=== PATIENT | male | born 1940 | race Caucasian/White ===

== ENCOUNTER 2016-10-26 23:31 | Observation (INO) | payer MEDICARE, OTHER ==
[~2016-10-26] VITALS: Ht 165.1 cm; Wt 81.0 kg
[~2016-10-26 23:31] MED LIST: ASPI1TAB7 PO; BACT800T5 PO; CARB25TA PO; CLON2TAB PO; HYDR-3533 PO; LEVO.05 PO; TAB-TAB PO; TAMS0.4C67 PO; TRAM50TA PO; WAL-10TA2 PO; ZOFR4TAB3 SL
[2016-10-26 23:39] VITALS: BP 170/80; PULSE 101; RESP 18; TEMP 99.2; O2SAT 94
[2016-10-27] VITALS (11 sets, daily range): BP systolic 115–170; BP diastolic 59–98; PULSE 62–101; RESP 16–18; TEMP 97.9–99.2; O2SAT 94–98
[2016-10-27] MEDS ORDERED: CLON2TAB PO (00:19)
[2016-10-27] MEDS ORDERED: CARB25TA9 PO (00:19)
[2016-10-27] MEDS ORDERED: TRAM50TA PO (00:19)
[2016-10-27] MEDS ORDERED: LEVO75TA3 PO (00:19)
[2016-10-27] MEDS ORDERED: ASPI81CH CHEW (00:19)
[2016-10-27] MEDS ORDERED: SODIUM CHLOR 0.9% 1000 ML INJ 1,000 ML IV SCH ×3 (00:29→02:07)
[2016-10-27] MEDS ORDERED: ONDANSETRON HCL 4 MG/2 ML VIAL IVP ONE (00:30)
[2016-10-27] MEDS ORDERED: SODIUM CHLORIDE 0.9% FLUSH 5 ML FLUSH IVF PRN (00:30)
--- NOTE | 2016-10-27 00:45 | PD ---
HPI Chief Complaint: GI Complaint Time Seen by Provider: 00:25 Travel History International Travel<30 days: No Contact w/Intl Traveler<30days: No Traveled to known affect area: No History of Present Illness HPI The patient is a 76-year-old male that states he started having mostly left lower quadrant pain along with vomiting beginning at 1800 today. The patient has an enlarged prostate and has trouble urinating. He denies any fever or diarrhea. PFSH Past Medical History Arthritis: Yes (LOWER BACK) Anxiety: Yes Depression: No Cancer: Yes (PROSTATE CANCER 2001) Cardiovascular Problems: Yes Chemotherapy: No Diabetes: No Diminished Hearing: No Endocrine: Yes Gastrointestinal Disorders: Yes GERD: Yes Genitourinary: Yes Hypertension: Yes Immune Disorder: No Musculoskeletal: Yes (POST POLIO SYNDROME) Neurologic: Yes Parkinson's Disease: Yes Psychiatric: Yes Reproductive: No Respiratory: No Immunizations Current: Yes Radiation Therapy: Yes (IMPLANTED SEEDS, EXTERNAL BEAM RADIATION) Thyroid Disease: Yes (ON SYNTHROID) Tetanus Vaccination: Unknown Influenza Vaccination: Yes Past Surgical History Genitourinary Surgery: Yes (PROSTATE REMOVAL) Tonsillectomy: Yes Other Surgery: Yes (3 RECTAL SURGERIES) Social History Alcohol Use: Yes (SOCIAL) Tobacco Use: No (QUIT 48 YEARS AGO) Substance Use: No Allergies-Medications (Allergen,Severity, Reaction): Coded Allergies: Flexeril (Verified Allergy, Severe, stiff, 10/27/16) Reported Meds & Prescriptions Reported Meds & Active Scripts Active Reported Tramadol (Tramadol HCl) 50 Mg Tab 50 Mg PO Q4H PRN Levothyroxine (Levothyroxine Sodium) 75 Mcg Tab 75 Mcg PO DAILY Clonazepam 2 Mg Tab 4 Mg PO HS Carbidopa-Levodopa 25-100 Mg Tab 1 Tab PO TID Aspirin 81 Mg Chew 81 Mg CHEW DAILY Review of Systems Except as stated in HPI: all other systems reviewed are Neg Physical Exam Narrative GENERAL: The patient is alert, oriented 3 and slight apparent distress with his abdominal discomfort. His vital signs show blood pressure 170/80 with a heart rate of 101 but are otherwise normal. The patient appears moderately dehydrated. SKIN: Warm and dry. HEAD: Atraumatic. Normocephalic. EYES: Pupils equal and round. No scleral icterus. No injection or drainage. ENT: No nasal bleeding or discharge. Mucous membranes pink and moist. NECK: Trachea midline. No JVD. CARDIOVASCULAR: Regular rate and rhythm. No murmur appreciated. RESPIRATORY: No accessory muscle use. Clear to auscultation. Breath sounds equal bilaterally. GASTROINTESTINAL: Abdomen soft, with tenderness to direct palpation in the left lower and mid quadrants, nondistended. Hepatic and splenic margins not palpable. No guarding or rebound is present. MUSCULOSKELETAL: No obvious deformities. No clubbing. No cyanosis. No edema. NEUROLOGICAL: Awake and alert. No obvious cranial nerve deficits. Motor grossly within normal limits. Normal speech. PSYCHIATRIC: Appropriate mood and affect; insight and judgment normal. Data Data Last Documented VS Vital Signs Date Time Temp Pulse Resp B/P Pulse Ox O2 Delivery O2 Flow Rate FiO2 10/27/16 01:21 95 18 143/72 94 Room Air 10/27/16 00:04 99.2 Orders Complete Blood Count With Diff (10/27/16 00:29) Comprehensive Metabolic Panel (10/27/16 00:29) Lipase (10/27/16 00:29) Urinalysis - C+S If Indicated (10/27/16 00:29) Ct Abd/Pel W/O Iv Contrast (10/27/16 00:29) Iv Access Insert/Monitor (10/27/16 00:29) Ecg Monitoring (10/27/16 00:29) Oximetry (10/27/16 00:29) Ondansetron Inj (Zofran Inj) (10/27/16 00:30) Sodium Chlor 0.9% 1000 Ml Inj (Ns 1000 M (10/27/16 00:29) Sodium Chloride 0.9% Flush (Ns Flush) (10/27/16 00:30) Sodium Chlor 0.9% 1000 Ml Inj (Ns 1000 M (10/27/16 01:45) Place In Observation (10/27/16 ) Vital Signs (Adult) Q4H (10/27/16 02:07) Activity Oob With Assistance (10/27/16 02:07) Intake + Output RANJAN.QSHIFT (10/27/16 02:07) Diet Regular Basic (10/27/16 Breakfast) Sodium Chlor 0.9% 1000 Ml Inj (Ns 1000 M (10/27/16 02:07) Sodium Chloride 0.9% Flush (Ns Flush) (10/27/16 02:15) Sodium Chloride 0.9% Flush (Ns Flush) (10/27/16 09:00) Ondansetron Inj (Zofran Inj) (10/27/16 02:15) Bisacodyl Supp (Dulcolax Supp) (10/27/16 02:15) Comprehensive Metabolic Panel (10/28/16 06:00) Complete Blood Count With Diff (10/28/16 06:00) Lipase (10/28/16 06:00) Scd Bilateral/Knee High RANJAN.BID (10/27/16 02:07) Swapnil Bilateral/Knee High RANJAN.QSHIFT (10/27/16 02:07) Acetaminophen (Tylenol) (10/27/16 02:15) Acetamin-Hydrocod 325-5 Mg ([place] 5-325 (10/27/16 02:15) Morphine Inj (Morphine Inj) (10/27/16 02:15) Pantoprazole Inj (Protonix Inj) (10/27/16 02:15) Aspirin Chew (Aspirin Chew) (10/27/16 09:00) Carbidopa-Levodopa 25-100 Mg (Sinemet 25 (10/27/16 09:00) Clonazepam (Klonopin) (10/27/16 21:00) Levothyroxine (Synthroid) (10/27/16 09:00) Labs Laboratory Tests Test 10/27/16 10/27/16 01:00 01:10 Urine Collection Type CLEAN CATCH Urine Color YELLOW Urine Turbidity CLEAR Urine pH 6.0 Urine Specific [place] 1.028 Urine Protein TRACE mg/dL Urine Glucose (UA) NEG mg/dL Urine Ketones 40 mg/dL Urine Occult Blood NEG Urine Nitrite NEG Urine Bilirubin NEG Urine Leukocyte Esterase NEG Urine WBC 0-2 /hpf Urine Squamous Epithelial 0-5 /hpf Cells Urine Amorphous Sediment FEW Urine Mucus FEW /lpf Microscopic Urinalysis Comment CULT NOT INDICATED White Blood Count 13.7 TH/MM3 Red Blood Count 5.13 MIL/MM3 Hemoglobin 18.2 GM/DL Hematocrit 53.5 % Mean Corpuscular Volume 104.3 FL Mean Corpuscular Hemoglobin 35.5 PG Mean Corpuscular Hemoglobin 34.0 % Concent Red Cell Distribution Width 13.0 % Platelet Count 145 TH/MM3 Mean Platelet Volume 9.4 FL Neutrophils (%) (Auto) 88.6 % Lymphocytes (%) (Auto) 2.9 % Monocytes (%) (Auto) 6.0 % Eosinophils (%) (Auto) 0.1 % Basophils (%) (Auto) 2.4 % Neutrophils # (Auto) 12.2 TH/MM3 Lymphocytes # (Auto) 0.4 TH/MM3 Monocytes # (Auto) 0.8 TH/MM3 Eosinophils # (Auto) 0.0 TH/MM3 Basophils # (Auto) 0.3 TH/MM3 CBC Comment DIFF FINAL Differential Comment Sodium Level 141 MEQ/L Potassium Level 4.4 MEQ/L Chloride Level 105 MEQ/L Carbon Dioxide Level 25.0 MEQ/L Anion Gap 11 MEQ/L Blood Urea Nitrogen 18 MG/DL Creatinine 1.60 MG/DL Estimat Glomerular Filtration 42 ML/MIN Rate Random Glucose 214 MG/DL Calcium Level 9.0 MG/DL Total Bilirubin 1.0 MG/DL Aspartate Amino Transf 98 U/L (AST/SGOT) Alanine Aminotransferase 85 U/L (ALT/SGPT) Alkaline Phosphatase 84 U/L Total Protein 8.1 GM/DL Albumin 4.4 GM/DL Lipase 633 U/L [facility] Medical Decision Making Medical Screen Exam Complete: Yes Emergency Medical Condition: Yes Medical Record Reviewed: Yes Interpretation(s) The complete metabolic profile shows a creatinine of 1.6, glucose 214, AST of 98 , ALT of 85 but is otherwise unremarkable. The lipase is 633. The urinalysis shows 40 ketones, specific gravity 1.0-8 and is otherwise unremarkable and culture is not indicated. The CBC shows a white count of 13,700, hemoglobin of 18.2, hematocrit of 53.5 with a platelet count of 145,000 but is otherwise unremarkable. Differential Diagnosis Diverticulitis, urinary stone, colitis, acute appendicitis, dehydration, electrolyte disorder, pyelonephritis, cystitis, pancreatitis, ischemic bowel Narrative Course The patient was dehydrated. He has hemoconcentration as demonstrated by his hemoglobin and hematocrit elevation. He also has a high urine specific gravity and ketones in his urine. He has an elevated lipase but he is not particularly tender over the pancreas. The patient will be brought in under [address] of the abdomen/pelvis does not demonstrate a reason for his abdominal pain, nausea and vomiting. This may be a gastroenteritis, ischemic bowel is possible but his tenderness appears to be going away at this time. Physician Communication Physician Communication I discussed the patient with Dr. Heredia, the patient will be 23 hour observation to her. Diagnosis Primary Impression: Abdominal pain Additional Impressions: Abdominal pain of unknown etiology Pancreatitis Moderate dehydration Admitting Information Admitting Physician Requests: Observation Eddie Taylor MD Oct 27, 2016 00:45
--- NOTE | 2016-10-27 01:17 | RADHPO ---
EXAM DATE/TIME: 10/27/2016 00:53 [facility] COMPARISON: CT ABDOMEN & PELVIS W CONTRAST, July 03, 2015, 3:34. INDICATIONS : Vomiting with bilateral flank pain. ORAL CONTRAST: No oral contrast ingested. RADIATION DOSE: 18.56 CTDIvol (mGy) MEDICAL HISTORY : Hypertension. Gastroesophageal reflux disease. Carcinoma, prostate.Parkinsons. SURGICAL HISTORY : None. ENCOUNTER: Initial ACUITY: 1 day PAIN SCALE: 6/10 LOCATION: Bilateral flank TECHNIQUE: Volumetric scanning of the abdomen and pelvis was performed. Using automated exposure control and ad justment of the mA and/or kV according to patient size, radiation dose was kept as low as reasonably achievable to obtain optimal diagnostic quality images. The lack of IV contrast limits the diagnosis for certain organ pathology. FINDINGS: LOWER LUNGS: The visualized lower lungs are clear. LIVER: Homogeneous density without lesion. There is no dilation of the biliary tree. No calcified gallston es. Fatty infiltration of liver. SPLEEN: Normal size without lesion. PANCREAS: Within normal limits. KIDNEYS: Normal in size and shape. There is no mass, stone, or hydronephrosis. The ureters are nondilated. Th ere is stable cortical scarring of the right kidney. ADRENAL GLANDS: Within normal limits. VASCULAR: There is no aortic aneurysm. Atherosclerotic changes. BOWEL/MESENTERY: The stomach, small bowel, and colon demonstrate no acute abnormality. There is no free intraperitone al air or fluid. A few scattered diverticula of the sigmoid colon. No inflammatory changes. ABDOMINAL WALL: Within normal limits. RETROPERITONEUM: There is no lymphadenopathy. BLADDER: No wall thickening or mass. REPRODUCTIVE: Prostate seeds are in place. INGUINAL: There is no lymphadenopathy or hernia. MUSCULOSKELETAL: Within normal limits for patient age. Primary bony degenerative changes. No significant changes compared to the prior study. CONCLUSION: 1. No calcified renal stones or hydronephrosis. 2. Otherwise, stable exam compared to the prior study from 2014 Lamberto Andrade MD on October 27, 2016 at 1:11 Board Certified Radiologist. This report was verified electronically.
[2016-10-27 01:22] LABS: AUTOMATED NEUTROPHIL # 12.2 TH/MM3 (1.8-7.7); BASOPHIL # 0.3 TH/MM3 (0-0.2); BASOPHIL % 2.4 % (0.0-2.0); EOSINOPHIL % 0.1 % (0.0-4.0); HEMATOCRIT 53.5 % (39.0-51.0); LYMPH % 2.9 % (9.0-44.0); LYMPHOCYTE # 0.4 TH/MM3 (1.0-4.8); MEAN CELL VOLUME 104.3 FL (80.0-100.0); MEAN CORPUSCULAR HEMOGLOBIN 35.5 PG (27.0-34.0); NEUT % 88.6 % (16.0-70.0); PLATELET COUNT 145 TH/MM3 (150-450); RED BLOOD COUNT 5.13 MIL/MM3 (4.50-5.90); WHITE BLOOD COUNT 13.7 TH/MM3 (4.0-11.0)
[2016-10-27 01:22] LABS: BLOOD, URINE NEG (NEG); GLUCOSE,URINE NEG (NEG); KETONE, URINE 40 mg/dL (NEG); NITRITE,URINE NEG (NEG)
[2016-10-27 01:23] LABS: HEMO FLAGS DIFF FINAL
[2016-10-27 01:35] LABS: CHLORIDE 105 MEQ/L (98-107); POTASSIUM 4.4 MEQ/L (3.5-5.1); SODIUM (NA) 141 MEQ/L (136-145)
[2016-10-27 01:36] LABS: METHOD OF COLLECTION CLEAN CATCH; URINE COLOR YELLOW (YELLW/STRAW)
[2016-10-27 01:37] LABS: MUCUS URINE FEW /lpf (OCC)
[2016-10-27 01:38] LABS: SQUAMOUS EPITHELIAL CELL URINE 0-5 /hpf (0-5)
[2016-10-27 01:39] LABS: ANION GAP 11 MEQ/L (5-15); BLOOD UREA NITROGEN 18 MG/DL (7-18)
[2016-10-27 01:39] LABS: WBC, URINE 0-2 /hpf (0-5)
[2016-10-27 01:40] LABS: COMMENT (UR) CULT NOT INDICATED; CULTURE IF INDICATED CULT NOT INDICATED
[2016-10-27 01:41] LABS: ALT (GPT) 85 U/L (12-78)
[2016-10-27 01:42] LABS: AST (GOT) 98 U/L (15-37); GLOMERULAR FILTRATION RATE 42 ML/MIN (>89)
[2016-10-27 01:44] LABS: ALKALINE PHOSPHATASE 84 U/L (45-117)
[2016-10-27] MEDS ORDERED: SODIUM CHLORIDE 0.9% FLUSH 5 ML FLUSH FLUSH PRN (02:15)
[2016-10-27] MEDS ORDERED: BISACODYL 10 MG SUPP PR PRN (02:15)
[2016-10-27] MEDS ORDERED: ONDANSETRON HCL 4 MG/2 ML VIAL IVP PRN (02:15)
[2016-10-27] MEDS ORDERED: PANTOPRAZOLE SODIUM 40 MG VIAL IV PUSH ONE (02:15)
[2016-10-27] MEDS ORDERED: ACETAMINOPHEN 325 MG TAB PO PRN (02:15)
[2016-10-27] MEDS ORDERED: ACETAMINOPHEN/HYDROcodone 325 MG/5 MG TAB PO PRN (02:15)
[2016-10-27] MEDS ORDERED: MORPHINE SULFATE 4 MG/ML INJ IV PRN (02:15)
[2016-10-27] MEDS ORDERED: LEVOTHYROXINE SODIUM 75 MCG TAB PO SCH (06:00)
[2016-10-27 06:58] LABS: CHLORIDE 112 MEQ/L (98-107); POTASSIUM 4.2 MEQ/L (3.5-5.1); SODIUM (NA) 145 MEQ/L (136-145)
[2016-10-27 07:00] LABS: AUTOMATED NEUTROPHIL # 8.5 TH/MM3 (1.8-7.7); BASOPHIL % 0.1 % (0.0-2.0); EOSINOPHIL % 0.2 % (0.0-4.0); HEMATOCRIT 43.2 % (39.0-51.0); HEMO FLAGS DIFF FINAL; LYMPH % 6.8 % (9.0-44.0); LYMPHOCYTE # 0.7 TH/MM3 (1.0-4.8); MEAN CELL VOLUME 103.3 FL (80.0-100.0); MEAN CORPUSCULAR HEMOGLOBIN 35.8 PG (27.0-34.0); MEAN CORPUSCULAR HGB CONC 34.6 % (32.0-36.0); MONO % 8.3 % (0.0-8.0); NEUT % 84.6 % (16.0-70.0); PLATELET COUNT 130 TH/MM3 (150-450); RED BLOOD COUNT 4.18 MIL/MM3 (4.50-5.90); RED CELL DISTRIBUTION WIDTH 12.7 % (11.6-17.2)
[2016-10-27 07:08] LABS: ALKALINE PHOSPHATASE 59 U/L (45-117); ALT (GPT) 85 U/L (12-78); ANION GAP 8 MEQ/L (5-15); AST (GOT) 59 U/L (15-37); BLOOD UREA NITROGEN 16 MG/DL (7-18); GLOMERULAR FILTRATION RATE 54 ML/MIN (>89); TOTAL BILIRUBIN ADULT 0.5 MG/DL (0.2-1.0)
--- NOTE | 2016-10-27 08:36 | HHI.HP ---
[facility] Campbell Baez MD Admission Diagnosis abdominal pain, dehydration, pancreatitis Diagnoses: (1) Abdominal pain Diagnosis: Principal (2) Nausea & vomiting Diagnosis: Principal (3) Elevated lipase Diagnosis: Principal (4) Acute renal failure superimposed on stage 3 chronic kidney disease Diagnosis: Principal Chief Complaint: Nausea and vomiting Travel History International Travel<30 Days: No Contact w/Intl Traveler <30 Da: No Traveled to Known Affected Are: No History of Present Illness 76 year-old male with known history of Parkinson's, chronic kidney disease stage III, hypothyroidism, history of prostate cancer who presented to hospital because of nausea vomiting. Patient states that he ate dinner last night which consisted of pulled chicken and 5 garibay salad. Subsequently 1 hour after that he started developing lower abdominal pain, nausea vomiting. Patient states that he vomited 7 times and was unable to keep anything down so he came to the hospital for evaluation. Patient had workup done emergency department and was found to have an elevated lipase level, acute renal failure superimposed on chronic kidney disease. It was then recommended by ER physician that the patient be admitted for further evaluation management. Upon evaluating the patient this morning patient is feeling much better. He is no longer experiencing any abdominal pain. Patient has a breakfast without any recurrent nausea and vomiting. Patient denies any hematemesis, diarrhea, constipation. Discussed with patient his clinical condition, he is asymptomatic at this time. Tolerating food. Notified him that we can plan to discharge him home. Patient is in agreement with the plan at this time. Review of Systems Constitutional: DENIES: Diaphoretic episodes, Fatigue, Fever, Weight gain, Weight loss, Chills, Dizziness, Change in appetite, Night Sweats Eyes: DENIES: Blurred vision, Diplopia, Eye inflammation, Eye pain, Vision loss , Double Vision Ears, nose, mouth, throat: DENIES: Vertigo, Nasal discharge, Throat pain, Ear Pain, Running Nose, Sinus Pain Respiratory: DENIES: Apneas, Cough, Snoring, Wheezing, Hemoptysis, Sputum production, Shortness of breath Cardiovascular: DENIES: Chest pain, Palpitations, Syncope, Dyspnea on Exertion , Lower Extremity Edema, Orthopnea Gastrointestinal: COMPLAINS OF: Abdominal pain, Nausea, Vomiting, DENIES: Black stools, Bloody stools, Constipation, Diarrhea, Difficulty Swallowing, Anorexia Neurologic: DENIES: Abnormal gait, Headache, Localized weakness, Paresthesias, Seizures, Speech Problems, Tremor, Poor Balance Past Family Social History Past Medical History Parkinson's History of prostate cancer Hypothyroidism History of polio Gastroesophageal reflux Past Surgical History Tonsillectomy 4 rectal surgeries related to radiation complications Reported Medications Reported Meds & Active Scripts Active Reported Tramadol (Tramadol HCl) 50 Mg Tab 50 Mg PO Q4H PRN Levothyroxine (Levothyroxine Sodium) 75 Mcg Tab 75 Mcg PO DAILY Clonazepam 2 Mg Tab 4 Mg PO HS Carbidopa-Levodopa 25-100 Mg Tab 1 Tab PO TID Aspirin 81 Mg Chew 81 Mg CHEW DAILY Allergies: Coded Allergies: Flexeril (Verified Allergy, Severe, stiff, 10/27/16) Family History Reviewed and patient states that both mother and father had alcoholism. Mother had history of throat cancer status post radiation secondary to smoking Social History Patient quit smoking in 1969, prior to that he smoked up to a pack a cigarettes a day since he was 20 years old. Patient states that he does drink alcohol occasionally. Denies any illicit drugs Physical Exam Vital Signs Vital Signs Date Time Temp Pulse Resp B/P Pulse Ox O2 Delivery O2 Flow Rate FiO2 10/27/16 07:55 74 16 115/60 98 Room Air 10/27/16 06:10 89 16 132/73 98 Room Air 10/27/16 05:20 83 16 138/74 97 Room Air 10/27/16 04:36 18 10/27/16 04:36 83 18 136/66 95 Room Air 10/27/16 03:18 97.9 90 18 161/98 96 Room Air 10/27/16 02:18 18 10/27/16 02:18 92 18 160/70 95 Room Air 10/27/16 01:21 95 18 143/72 94 Room Air 10/27/16 00:34 18 95 Room Air 10/27/16 00:08 18 10/27/16 00:04 99.2 101 18 170/80 94 10/26/16 23:39 99.2 101 18 170/80 94 Physical Exam GENERAL: Well-developed, well-nourished, in no acute distress. alert and orientated HEENT: Head is normocephalic without any lesions or masses noted. Facial features are symmetric. Eyes: Pupils equal round reactive to light. Extraocular muscles are intact. Conjunctivae were clear. Oropharyngeal: Pharynx without any erythema edema. Tongue is midline without deviation. Buccal mucosa is moist without any masses or lesions NECK: Supple without any masses. Trachea midline no deviation. No JVD, no bruits are appreciated CARDIAC: Regular rhythm, regular rate. S1/S2 are heard. No murmurs gallops or rubs. LUNGS: Clear to auscultation bilaterally. No wheeze, rhonchi or rales. No use of accessory muscles on inspiration or expiration. ABDOMEN: Soft, nontender. Nondistended. Bowel sounds heard in all 4 quadrants. No organomegaly or masses. Negative rebound, negative guarding EXTREMITIES: No edema, pulses are equal bilaterally. No cyanosis or clubbing NEUROLOGY: Mood and affect appear appropriate. Cranial nerves II through XII grossly intact. Muscle strength 5/5 in upper and lower extremities bilaterally. Deep tendon reflexes are 2+ in upper and lower extremities bilaterally. Laboratory Laboratory Tests Test 10/27/16 10/27/16 10/27/16 01:00 01:10 06:05 Urine Collection Type CLEAN CATCH Urine Color YELLOW Urine Turbidity CLEAR Urine pH 6.0 Urine Specific [place] 1.028 Urine Protein TRACE Urine Glucose (UA) NEG Urine Ketones 40 Urine Occult Blood NEG Urine Nitrite NEG Urine Bilirubin NEG Urine Leukocyte Esterase NEG Urine WBC 0-2 Urine Squamous Epithelial 0-5 Cells Urine Amorphous Sediment FEW Urine Mucus FEW Microscopic Urinalysis Comment CULT NOT INDICATED White Blood Count 13.7 10.0 Red Blood Count 5.13 4.18 Hemoglobin 18.2 14.9 Hematocrit 53.5 43.2 Mean Corpuscular Volume 104.3 103.3 Mean Corpuscular Hemoglobin 35.5 35.8 Mean Corpuscular Hemoglobin 34.0 34.6 Concent Red Cell Distribution Width 13.0 12.7 Platelet Count 145 130 Mean Platelet Volume 9.4 9.7 Neutrophils (%) (Auto) 88.6 84.6 Lymphocytes (%) (Auto) 2.9 6.8 Monocytes (%) (Auto) 6.0 8.3 Eosinophils (%) (Auto) 0.1 0.2 Basophils (%) (Auto) 2.4 0.1 Neutrophils # (Auto) 12.2 8.5 Lymphocytes # (Auto) 0.4 0.7 Monocytes # (Auto) 0.8 0.8 Eosinophils # (Auto) 0.0 0.0 Basophils # (Auto) 0.3 0.0 CBC Comment DIFF FINAL DIFF FINAL Differential Comment Sodium Level 141 145 Potassium Level 4.4 4.2 Chloride Level 105 112 Carbon Dioxide Level 25.0 25.0 Anion Gap 11 8 Blood Urea Nitrogen 18 16 Creatinine 1.60 1.30 Estimat Glomerular Filtration 42 54 Rate Random Glucose 214 172 Calcium Level 9.0 7.7 Total Bilirubin 1.0 0.5 Aspartate Amino Transf 98 59 (AST/SGOT) Alanine Aminotransferase 85 85 (ALT/SGPT) Alkaline Phosphatase 84 59 Total Protein 8.1 6.2 Albumin 4.4 3.3 Lipase 633 269 Result Diagram: 10/27/1660410/27/16604 Imaging Last Impressions Abdomen/Pelvis CT 10/27/16 0029 Signed Impressions: Service Date/Time: Thursday, October 27, 2016 00:53 - CONCLUSION: 1. No calcified renal stones or hydronephrosis. 2. Otherwise, stable exam compared to the prior study from 2015 Lamberto Andrade MD Assessment and Plan Assessment and Plan Nausea vomiting with elevated lipase, resolved CT scan does not indicate any acute abnormality Lipase level has returned to normal Patient is tolerating breakfast without any recurrent nausea vomiting Acute renal failure superimposed on chronic kidney disease stage III, improved Continue IV hydration Continue monitor renal functions Hyperglycemia Check hemoglobin A1c Patient will need outpatient follow-up with primary medical doctor Hypothyroidism Continue home medications Parkinson's Continue home medications DVT prevention Sequential compression devices Written by Rk Taylor PA-C, acting as scribe for Dr. Singer on 10/27/16 at 1035. The documentation accurately reflects the work and decisions performed face-to- face by Dr. Singer on 10/27/16 at 1035. Discharge disposition Discharge home in stable condition Activity: Ad reyna. Diet: Healthy heart diet Medications per medication reconciliation Follow-up with primary medical doctor in one week Problem Qualifiers (1) Abdominal pain: Qualified Code: R10.30 - Lower abdominal pain (2) Nausea & vomiting: Qualified Code: R11.2 - Non-intractable vomiting with nausea, unspecified vomiting type Rk Taylor Oct 27, 2016 08:36
--- NOTE | 2016-10-27 08:37 | HHI.DCPOC ---
Discharge Care Plan Diagnosis: (1) Nausea & vomiting (2) Elevated lipase (3) Acute renal failure superimposed on stage 3 chronic kidney disease Goals to Promote Your Health * To prevent worsening of your condition and complications * To maintain your health at the optimal level Directions to Meet Your Goals Take your medications as prescribed Follow your dietary instruction Follow activity as directed Keep your appointments as scheduled Take your immunizations and boosters as scheduled If your symptoms worsen call your PCP, if no PCP go to Urgent Care Center or Emergency Room Smoking is Dangerous to Your Health. Avoid second hand smoke Call the 24-hour hour crisis hotline for domestic abuse at Rk Taylor Oct 27, 2016 08:37
[2016-10-27] MEDS ORDERED: CARBIDOPA/LEVODOPA 25 MG/100 MG TAB PO SCH (09:00)
[2016-10-27] MEDS ORDERED: ASPIRIN 81 MG CHEW TAB CHEW SCH (09:00)
[2016-10-27] MEDS ORDERED: SODIUM CHLORIDE 0.9% FLUSH 5 ML FLUSH FLUSH SCH (09:00)
[2016-10-27 16:30] LABS: HEMOGLOBIN A1a 1.1 %; HEMOGLOBIN A1b 1.6 %; HEMOGLOBIN Ao 84.7 %; HEMOGLOBIN LA1C 2.4 %; HEMOGLOBIN P3 3.7 %
[2016-10-27] MEDS ORDERED: clonazePAM 1 MG TAB PO SCH (21:00)
== END 2016-10-27 12:13 | disposition home or self-care (01) ==
LOC: PHED 23:31 → PHEDA 10-27 02:20 → PHEDH 10-27 06:19
PROVIDERS: ADMIT Family Medicine; ATTEND Family Medicine
DX: R11.2 Nausea with vomiting, unspecified (principal); N17.8 Other acute kidney failure; N18.3 Chronic kidney disease, stage 3 (moderate); K85.90 Acute pancreatitis without necrosis or infection, unspecified; E86.0 Dehydration; G20 Parkinson's disease; E03.9 Hypothyroidism, unspecified; R73.9 Hyperglycemia, unspecified; Z85.46 Personal history of malignant neoplasm of prostate; Z80.8 Family history of malignant neoplasm of other organs or systems
CPT/HCPCS: 74176; 80053; 81001; 83036; 83690; 85025; 96361; 96374; 99285; C9113; G0378; J2405; J7030

== ENCOUNTER → 2016-11-04 | Outpatient (CLI) | payer MEDICARE, OTHER ==
[~2016-11-04] MED LIST changes: -ASPI1TAB7 PO; +ASPI81CH CHEW; -BACT800T5 PO; -CARB25TA PO; +CARB25TA9 PO; -HYDR-3533 PO; -LEVO.05 PO; +LEVO75TA3 PO; -TAB-TAB PO; -TAMS0.4C67 PO; -WAL-10TA2 PO; -ZOFR4TAB3 SL
== END ==
LOC: PLAB 06:59
PROVIDERS: ATTEND Urology
DX: Z85.46 Personal history of malignant neoplasm of prostate (principal)
CPT/HCPCS: 36415; 84153

== ENCOUNTER → 2016-12-17 | Outpatient (CLI) | payer MEDICARE, OTHER ==
[2016-12-17 12:16] LABS: MEAN CELL VOLUME 102.8 FL (80.0-100.0); MEAN CORPUSCULAR HEMOGLOBIN 36.1 PG (27.0-34.0); MEAN CORPUSCULAR HGB CONC 35.1 % (32.0-36.0); PLATELET COUNT 141 TH/MM3 (150-450); RED BLOOD COUNT 4.67 MIL/MM3 (4.50-5.90); RED CELL DISTRIBUTION WIDTH 13.2 % (11.6-17.2); REVIEW FLAG FINAL; WHITE BLOOD COUNT 5.2 TH/MM3 (4.0-11.0)
[2016-12-17 12:52] LABS: ALKALINE PHOSPHATASE 73 U/L (45-117); ALT (GPT) 18 U/L (12-78); ANION GAP 8 MEQ/L (5-15); AST (GOT) 40 U/L (15-37); BICARBONATE 31.4 MEQ/L (21.0-32.0); BLOOD UREA NITROGEN 15 MG/DL (7-18); CHLORIDE 105 MEQ/L (98-107); FREE T4 0.95 NG/DL (0.76-1.46); GLOMERULAR FILTRATION RATE 53 ML/MIN (>89); GLUCOSE,FASTING 148 MG/DL (74-99); HDL CHOLESTEROL 43.6 MG/DL (40.0-60.0); LDL CHOLESTEROL 97 MG/DL (0-99); LDL CHOLESTEROL DIRECT 119 MG/DL (0-99); POTASSIUM 3.9 MEQ/L (3.5-5.1); SODIUM (NA) 144 MEQ/L (136-145); TOTAL BILIRUBIN ADULT 0.8 MG/DL (0.2-1.0)
[2016-12-17 16:02] LABS: HEMOGLOBIN A1a 1.1 %; HEMOGLOBIN A1b 1.6 %; HEMOGLOBIN LA1C 2.1 %; HEMOGLOBIN P3 3.5 %
== END ==
LOC: PLAB 08:19
PROVIDERS: ATTEND Family Medicine
DX: E78.2 Mixed hyperlipidemia (principal); I10 Essential (primary) hypertension; E03.8 Other specified hypothyroidism; G20 Parkinson's disease
CPT/HCPCS: 36415; 80053; 80061; 83036; 83721; 84439; 84443; 85027

== ENCOUNTER → 2017-03-24 | Outpatient (CLI) | payer MEDICARE, OTHER ==
[2017-03-24 09:21] LABS: HEMATOCRIT 49.4 % (39.0-51.0); MEAN CELL VOLUME 101.9 FL (80.0-100.0); MEAN CORPUSCULAR HGB CONC 34.3 % (32.0-36.0); PLATELET COUNT 141 TH/MM3 (150-450); RED BLOOD COUNT 4.85 MIL/MM3 (4.50-5.90); RED CELL DISTRIBUTION WIDTH 12.7 % (11.6-17.2); REVIEW FLAG FINAL; WHITE BLOOD COUNT 5.5 TH/MM3 (4.0-11.0)
[2017-03-24 09:42] LABS: ANION GAP 9 MEQ/L (5-15); AST (GOT) 19 U/L (15-37); BICARBONATE 28.1 MEQ/L (21.0-32.0); BLOOD UREA NITROGEN 18 MG/DL (7-18); CHLORIDE 107 MEQ/L (98-107); GLOMERULAR FILTRATION RATE 50 ML/MIN (>89); GLUCOSE,FASTING 125 MG/DL (74-99); POTASSIUM 3.8 MEQ/L (3.5-5.1); SODIUM (NA) 144 MEQ/L (136-145)
[2017-03-24 09:53] LABS: ALKALINE PHOSPHATASE 67 U/L (45-117); ALT (GPT) 14 U/L (12-78); FREE T4 1.04 NG/DL (0.76-1.46); HDL CHOLESTEROL 37.6 MG/DL (40.0-60.0); LDL CHOLESTEROL 60 MG/DL (0-99); LDL CHOLESTEROL DIRECT 65 MG/DL (0-99); TOTAL BILIRUBIN ADULT 0.8 MG/DL (0.2-1.0)
== END ==
LOC: PLAB 06:56
PROVIDERS: ATTEND Family Medicine
DX: E78.2 Mixed hyperlipidemia (principal); I10 Essential (primary) hypertension; E03.8 Other specified hypothyroidism; G20 Parkinson's disease; I67.9 Cerebrovascular disease, unspecified
CPT/HCPCS: 36415; 80053; 80061; 83721; 84439; 84443; 85027

== ENCOUNTER → 2017-06-23 | Outpatient (CLI) | payer MEDICARE, OTHER ==
[2017-06-23 13:00] LABS: HEMATOCRIT 48.8 % (39.0-51.0); MEAN CELL VOLUME 102.6 FL (80.0-100.0); MEAN CORPUSCULAR HGB CONC 34.2 % (32.0-36.0); PLATELET COUNT 164 TH/MM3 (150-450); RED BLOOD COUNT 4.76 MIL/MM3 (4.50-5.90); RED CELL DISTRIBUTION WIDTH 12.9 % (11.6-17.2); REVIEW FLAG FINAL; WHITE BLOOD COUNT 7.9 TH/MM3 (4.0-11.0)
[2017-06-23 13:22] LABS: ALT (GPT) 12 U/L (12-78); ANION GAP 5 MEQ/L (5-15); AST (GOT) 20 U/L (15-37); BICARBONATE 29.4 MEQ/L (21.0-32.0); BLOOD UREA NITROGEN 14 MG/DL (7-18); CHLORIDE 109 MEQ/L (98-107); GLOMERULAR FILTRATION RATE 58 ML/MIN (>89); GLUCOSE,FASTING 77 MG/DL (74-99); SODIUM (NA) 143 MEQ/L (136-145)
[2017-06-23 13:31] LABS: ALKALINE PHOSPHATASE 95 U/L (45-117); FREE T4 1.13 NG/DL (0.76-1.46); HDL CHOLESTEROL 39.8 MG/DL (40.0-60.0); LDL CHOLESTEROL 66 MG/DL (0-99); LDL CHOLESTEROL DIRECT 74 MG/DL (0-99); TOTAL BILIRUBIN ADULT 0.4 MG/DL (0.2-1.0)
[2017-06-23 18:01] LABS: HEMOGLOBIN A1b 0.7 %; HEMOGLOBIN Ao 86.7 %; HEMOGLOBIN F 0.7 %; HEMOGLOBIN LA1C 1.8 %; HEMOGLOBIN P3 3.4 %
== END ==
LOC: PLAB 07:07
PROVIDERS: ATTEND Family Medicine
DX: E78.2 Mixed hyperlipidemia (principal); I10 Essential (primary) hypertension; E03.8 Other specified hypothyroidism; R73.01 Impaired fasting glucose; I67.9 Cerebrovascular disease, unspecified; G20 Parkinson's disease
CPT/HCPCS: 36415; 80053; 80061; 83036; 83721; 84439; 84443; 85027

== ENCOUNTER → 2017-09-18 | Outpatient (CLI) | payer MEDICARE, OTHER ==
[~2017-09-18] MED LIST changes: +ASPI-516 CHEW; -ASPI81CH CHEW
[2017-09-18 09:44] LABS: HEMATOCRIT 49.2 % (39.0-51.0); MEAN CELL VOLUME 100.7 FL (80.0-100.0); MEAN CORPUSCULAR HEMOGLOBIN 35.4 PG (27.0-34.0); MEAN CORPUSCULAR HGB CONC 35.1 % (32.0-36.0); PLATELET COUNT 176 TH/MM3 (150-450); RED BLOOD COUNT 4.88 MIL/MM3 (4.50-5.90); RED CELL DISTRIBUTION WIDTH 12.8 % (11.6-17.2); REVIEW FLAG FINAL; WHITE BLOOD COUNT 5.9 TH/MM3 (4.0-11.0)
[2017-09-18 09:49] LABS: ANION GAP 4 MEQ/L (5-15); AST (GOT) 21 U/L (15-37); BICARBONATE 31.8 MEQ/L (21.0-32.0); BLOOD UREA NITROGEN 12 MG/DL (7-18); CHLORIDE 108 MEQ/L (98-107); GLOMERULAR FILTRATION RATE 53 ML/MIN (>89); GLUCOSE,FASTING 115 MG/DL (74-99); POTASSIUM 4.3 MEQ/L (3.5-5.1); SODIUM (NA) 144 MEQ/L (136-145)
[2017-09-18 10:00] LABS: ALKALINE PHOSPHATASE 73 U/L (45-117); ALT (GPT) 10 U/L (12-78); FREE T4 1.12 NG/DL (0.76-1.46); HDL CHOLESTEROL 45.8 MG/DL (40.0-60.0); LDL CHOLESTEROL 59 MG/DL (0-99); LDL CHOLESTEROL DIRECT 74 MG/DL (0-99); TOTAL BILIRUBIN ADULT 0.6 MG/DL (0.2-1.0)
== END ==
LOC: PLAB 06:48
PROVIDERS: ATTEND Family Medicine
DX: E78.2 Mixed hyperlipidemia (principal); I10 Essential (primary) hypertension; E03.8 Other specified hypothyroidism; I67.9 Cerebrovascular disease, unspecified; G20 Parkinson's disease
CPT/HCPCS: 36415; 80053; 80061; 83721; 84439; 84443; 85027

== ENCOUNTER → 2017-11-06 | Outpatient (CLI) | payer MEDICARE, OTHER | LOC: PLAB 09:23 | PROVIDERS: ATTEND Urology | DX: Z85.46 Personal history of malignant neoplasm of prostate (principal) | CPT/HCPCS: 36415; 84153 ==

== ENCOUNTER 2017-12-09 12:44 | Inpatient (IN) | payer MEDICARE, OTHER ==
[~2017-12-09] VITALS: Ht 165.1 cm; Wt 70.0 kg
[2017-12-09 13:13] VITALS: BP 124/58; PULSE 56; RESP 17; TEMP 98.1; O2SAT 95
[2017-12-09] MEDS ORDERED: SODIUM CHLORIDE 0.9% FLUSH 10 ML FLUSH IVF PRN (13:15)
[2017-12-09 13:16] VITALS: O2SAT 96
[2017-12-09 13:46] LABS: AUTOMATED NEUTROPHIL # 4.5 TH/MM3 (1.8-7.7); BASOPHIL # 0.1 TH/MM3 (0-0.2); BASOPHIL % 0.9 % (0.0-2.0); EOSINOPHIL # 0.1 TH/MM3 (0-0.4); EOSINOPHIL % 1.8 % (0.0-4.0); HEMATOCRIT 44.4 % (39.0-51.0); HEMOGLOBIN 15.9 GM/DL (13.0-17.0); LYMPH % 13.3 % (9.0-44.0); LYMPHOCYTE # 0.8 TH/MM3 (1.0-4.8); MEAN CELL VOLUME 98.5 FL (80.0-100.0); MEAN CORPUSCULAR HEMOGLOBIN 35.2 PG (27.0-34.0); MEAN CORPUSCULAR HGB CONC 35.8 % (32.0-36.0); MEAN PLATELET VOLUME 9.5 FL (7.0-11.0); MONO % 10.4 % (0.0-8.0); MONOCYTE # 0.6 TH/MM3 (0-0.9); NEUT % 73.6 % (16.0-70.0); PLATELET COUNT 150 TH/MM3 (150-450); RED BLOOD COUNT 4.51 MIL/MM3 (4.50-5.90); RED CELL DISTRIBUTION WIDTH 12.9 % (11.6-17.2); WHITE BLOOD COUNT 6.1 TH/MM3 (4.0-11.0)
[2017-12-09 13:55] LABS: INTERNATIONAL NORMALIZED RATIO 1.2 RATIO; PROTHROMBIN TIME - PATIENT 11.9 SEC (9.8-11.6)
--- NOTE | 2017-12-09 14:01 | PD ---
HPI Chief Complaint: Fall Time Seen by Provider: 13:07 Travel History International Travel<30 days: No Contact w/Intl Traveler<30days: No Traveled to known affect area: No History of Present Illness HPI Patient is a 77-year-old male presents emergency department for evaluation of left knee pain after a ground-level fall. Patient has a history of Parkinson's and he states he was going downstairs missed the last stair and fell on knee. He states his been unable to walk since then is unable to straighten his knee. EMS noted that he had a high riding patella, he was placed in a posterior ladder 90 knee immobilizer given morphine prior to transportation here. Patient denies any head injury neck injury history of blood thinner use, denies any chest pain shortness breath abdominal pain nausea vomiting. States pain is still 5 out of 10, context and associated signs and symptoms and location as above PFSH Past Medical History Arthritis: Yes (LOWER BACK) Anxiety: Yes Depression: No Heart Rhythm Problems: No Cancer: Yes (PROSTATE CANCER 2001) Cardiovascular Problems: Yes High Cholesterol: Yes Chemotherapy: No Chest Pain: No Congestive Heart Failure: No Diabetes: No Diminished Hearing: No Endocrine: Yes Gastrointestinal Disorders: Yes GERD: Yes Genitourinary: Yes Hypertension: Yes Immune Disorder: No Kidney Stones: Yes Musculoskeletal: Yes (POST POLIO SYNDROME) Neurologic: Yes Parkinson's Disease: Yes Psychiatric: Yes Reproductive: No Respiratory: No Immunizations Current: Yes Radiation Therapy: Yes (IMPLANTED SEEDS, EXTERNAL BEAM RADIATION) Thyroid Disease: Yes (ON SYNTHROID) Tetanus Vaccination: > 5 Years Influenza Vaccination: No Past Surgical History Genitourinary Surgery: Yes (PROSTATE REMOVAL) Tonsillectomy: Yes Other Surgery: Yes (3 RECTAL SURGERIES) Social History Alcohol Use: Yes (SOCIAL) Tobacco Use: No (QUIT 48 YEARS AGO) Substance Use: No Allergies-Medications (Allergen,Severity, Reaction): Coded Allergies: cyclobenzaprine (Unverified Allergy, Severe, stiff, 12/09/17) Reported Meds & Prescriptions Reported Meds & Active Scripts Active Reported Tramadol (Tramadol HCl) 50 Mg Tab 50 Mg PO Q4H PRN Levothyroxine (Levothyroxine Sodium) 75 Mcg Tab 75 Mcg PO DAILY Clonazepam 2 Mg Tab 4 Mg PO HS Carbidopa-Levodopa 25-100 Mg Tab 1 Tab PO TID Aspirin 81 Mg Chew 81 Mg CHEW DAILY Review of Systems Except as stated in HPI: all other systems reviewed are Neg Physical Exam Narrative GENERAL: Well-developed well-nourished, no obvious distress, quite pleasant. SKIN: Focused skin assessment warm/dry. HEAD: Atraumatic. Normocephalic. EYES: Pupils equal and round. No scleral icterus. No injection or drainage. ENT: No nasal bleeding or discharge. Mucous membranes pink and moist. NECK: Trachea midline. No JVD. CARDIOVASCULAR: Regular rate and rhythm. No murmur appreciated. RESPIRATORY: No accessory muscle use. Clear to auscultation. Breath sounds equal bilaterally. GASTROINTESTINAL: Abdomen soft, non-tender, nondistended. Hepatic and splenic margins not palpable. MUSCULOSKELETAL: There is a small abrasion over the right patella there is no laceration and the skin is closed. fairly high riding patella as well. Patient unable to extend his knee, there is no joint effusion, no tenderness over the femur tibia or the fibula. Pulses motor and sensory intact distally in all 4 extremities, compartments are soft. No midline CT or L-spine tenderness. NEUROLOGICAL: Awake and alert. No obvious cranial nerve deficits. Motor grossly within normal limits. Normal speech. PSYCHIATRIC: Appropriate mood and affect; insight and judgment normal. Data Data Last Documented VS Vital Signs Date Time Temp Pulse Resp B/P (MAP) Pulse Ox O2 Delivery O2 Flow Rate FiO2 12/09/17 13:16 96 Room Air 12/09/17 13:13 98.1 56 17 124/58 (80) Orders Orders Electrocardiogram (12/09/17 13:07) Complete Blood Count With Diff (12/09/17 13:07) Comprehensive Metabolic Panel (12/09/17 13:07) Magnesium (Mg) (12/09/17 13:07) Prothrombin Time / Inr (Pt) (12/09/17 13:07) Act Partial Throm Time (Ptt) (12/09/17 13:07) Chest, Single Ap (12/09/17 13:07) Ecg Monitoring (12/09/17 13:07) Iv Access Insert/Monitor (12/09/17 13:07) Oximetry (12/09/17 13:07) Oxygen Administration (12/09/17 13:07) Sodium Chloride 0.9% Flush (Ns Flush) (12/09/17 13:15) Type And Screen (12/09/17 13:07) Knee, Complete (4vws) (12/09/17 ) Consult Orthopedic (12/09/17 ) Urinalysis - C+S If Indicated (12/09/17 14:37) Admit Order (Ed Use Only) (12/09/17 ) Labs Laboratory Tests Test 12/09/17 13:30 White Blood Count 6.1 TH/MM3 Red Blood Count 4.51 MIL/MM3 Hemoglobin 15.9 GM/DL Hematocrit 44.4 % Mean Corpuscular Volume 98.5 FL Mean Corpuscular Hemoglobin 35.2 PG Mean Corpuscular Hemoglobin Concent 35.8 % Red Cell Distribution Width 12.9 % Platelet Count 150 TH/MM3 Mean Platelet Volume 9.5 FL Neutrophils (%) (Auto) 73.6 % Lymphocytes (%) (Auto) 13.3 % Monocytes (%) (Auto) 10.4 % Eosinophils (%) (Auto) 1.8 % Basophils (%) (Auto) 0.9 % Neutrophils # (Auto) 4.5 TH/MM3 Lymphocytes # (Auto) 0.8 TH/MM3 Monocytes # (Auto) 0.6 TH/MM3 Eosinophils # (Auto) 0.1 TH/MM3 Basophils # (Auto) 0.1 TH/MM3 CBC Comment DIFF FINAL Differential Comment Prothrombin Time 11.9 SEC Prothromb Time International Ratio 1.2 RATIO Activated Partial Thromboplast Time 23.1 SEC Blood Urea Nitrogen 17 MG/DL Creatinine 1.03 MG/DL Random Glucose 108 MG/DL Total Protein 7.0 GM/DL Albumin 3.9 GM/DL Calcium Level 8.8 MG/DL Magnesium Level 2.0 MG/DL Alkaline Phosphatase 65 U/L Aspartate Amino Transf (AST/SGOT) 23 U/L Alanine Aminotransferase (ALT/SGPT) 12 U/L Total Bilirubin 0.6 MG/DL Sodium Level 142 MEQ/L Potassium Level 4.3 MEQ/L Chloride Level 111 MEQ/L Carbon Dioxide Level 25.6 MEQ/L Anion Gap 5 MEQ/L Estimat Glomerular Filtration Rate 70 ML/MIN MDM Medical Decision Making Medical Screen Exam Complete: Yes Emergency Medical Condition: Yes Differential Diagnosis Patellar dislocation, quadriceps tendon laceration, patella fracture, patellar tendon laceration, femur fracture, tibial fracture. Narrative Course Patient room to the emergency department, discussed with Dr. Campbell Bryant, patient does have a transverse patellar fracture. He recommends admission to the hospital for operative fixation likely tomorrow morning, preoperative labs have been ordered, EKG, UA. The findings were discussed with the patient and his family and they are agreeable. He states his pain is 5 out of 10 and currently fairly well-controlled. He denied any additional pain medicine in the emergency department. Discussed with Dr. Mullen for admission Diagnosis Primary Impression: Transverse fracture of patella Qualified Codes: S82.034A - Nondisplaced transverse fracture of right patella , initial encounter for closed fracture Admitting Information Admitting Physician Requests: Admit Condition: Stable Damion Cohen MD Dec 09, 2017 14:01
[2017-12-09 14:02] LABS: ALBUMIN 3.9 GM/DL (3.4-5.0); AST (GOT) 23 U/L (15-37); BICARBONATE 25.6 MEQ/L (21.0-32.0); BLOOD UREA NITROGEN 17 MG/DL (7-18); CALCIUM 8.8 MG/DL (8.5-10.1); CHLORIDE 111 MEQ/L (98-107); CREATININE 1.03 MG/DL (0.60-1.30); GLOMERULAR FILTRATION RATE 70 ML/MIN (>89); GLUCOSE,RANDOM 108 MG/DL (74-106); SODIUM (NA) 142 MEQ/L (136-145)
[2017-12-09 14:11] LABS: ALKALINE PHOSPHATASE 65 U/L (45-117); ALT (GPT) 12 U/L (12-78); TOTAL BILIRUBIN ADULT 0.6 MG/DL (0.2-1.0)
--- NOTE | 2017-12-09 14:40 | RADRPT ---
EXAM DATE/TIME: 12/09/2017 13:49 [facility] COMPARISON: No previous studies available for comparison. INDICATIONS : Right knee pain after falling onto knees. Patient states he was going up unto a sidewalk. MEDICAL HISTORY : Hypertension. Gastroesophageal reflux disease. Carcinoma, prostate.Parkinsons SURGICAL HISTORY : None. ENCOUNTER: Initial ACUITY: 1 day PAIN SCORE: 7/10 LOCATION: Right Knee. FINDINGS: Fracture MID pole of patella with distraction by 2 cm. Large joint effusion. Meniscal calcification s. CONCLUSION: Patellar fracture as above. Ranjeet Collins MD FACR on December 09, 2017 at 14:38 Board Certified Radiologist. This report was verified electronically.
--- NOTE | 2017-12-09 14:48 | RADRPT ---
EXAM DATE/TIME: 12/09/2017 13:47 [facility] COMPARISON: CHEST SINGLE AP, July 03, 2015, 1:38. INDICATIONS : Chest pain. MEDICAL HISTORY : Hypertension. Gastroesophageal reflux disease. Carcinoma, prostate.Parkinsons SURGICAL HISTORY : None. ENCOUNTER: Initial ACUITY: 1 day PAIN SCORE: 0/10 LOCATION: Bilateral chest FINDINGS: A single view of the chest demonstrates the lungs to be symmetrically aerated without evidence of mas s, infiltrate or effusion. The cardiomediastinal contours are unremarkable. Osseous structures are intact. CONCLUSION: 1. No acute cardiopulmonary findings. Stable compared to prior exam Gunnar Collins MD on December 09, 2017 at 14:45 Board Certified Radiologist. This report was verified electronically.
[2017-12-09] MEDS ORDERED: NALOXONE HCL 0.4 MG/ML AMP IV PUSH PRN (15:00)
[2017-12-09] MEDS ORDERED: SODIUM CHLORIDE 0.9% FLUSH 10 ML FLUSH IV FLUSH PRN (15:00)
[2017-12-09 15:14] VITALS: BP 147/68; PULSE 54; RESP 16; RESP 6; O2SAT 98
--- NOTE | 2017-12-09 15:39 | HHI.HP ---
[facility] Primary Care Physician Campbell Baez MD Admission Diagnosis Transverse Patellar fracture. Diagnoses: (1) Transverse fracture of patella Diagnosis: Principal Chief Complaint: pain to the right knee Travel History International Travel<30 Days: No Contact w/Intl Traveler <30 Da: No Traveled to Known Affected Are: No History of Present Illness patient is a 77 y/o male with history of Parkinson's disease, prostate cancer and hypothyroidism who presented to ER with right knee pain after he fell earlier today. he says that he was walking on the sidewalk when he missed a step and fell. he denies any chest pain, nausea, dizziness before the fall. no report of syncopal episode or head trauma. he started to have some pain to the right knee after the fall. pain was mild to moderate at the time of my evaluation.he denies any other complaints. Review of Systems Constitutional: DENIES: Fever, Weight loss, Chills, Night Sweats Eyes: DENIES: Blurred vision, Diplopia, Vision loss, Double Vision Ears, nose, mouth, throat: DENIES: Tinnitus, Vertigo, Throat pain, Epistaxis Respiratory: DENIES: Apneas, Cough, Snoring, Wheezing, Hemoptysis, Sputum production, Shortness of breath Cardiovascular: DENIES: Chest pain, Palpitations, Syncope, Dyspnea on Exertion , PND, Lower Extremity Edema, Orthopnea, Claudication Gastrointestinal: DENIES: Abdominal pain, Black stools, Bloody stools, Constipation, Diarrhea, Nausea, Vomiting, Difficulty Swallowing, Anorexia Genitourinary: DENIES: Urinary frequency, Urgency, Hematuria, Dysuria Musculoskeletal: COMPLAINS OF: Joint pain (right knee.), DENIES: Muscle aches, Stiffness, Joint Swelling Integumentary: DENIES: Rash Neurologic: DENIES: Abnormal gait, Headache, Localized weakness, Paresthesias, Seizures, Speech Problems, Tremor, Poor Balance Psychiatric: DENIES: Anxiety, Confusion, Mood changes, Depression, Hallucinations, Agitation, Suicidal Ideation, Homicidal Ideation, Delusions Past Family Social History Past Medical History Parkinson's disease/ hypothyroidism. Past Surgical History prostate surgery/ tonsillectomy. Reported Medications Tramadol (Tramadol HCl) 50 Mg Tab 50 Mg PO Q4H PRN Levothyroxine (Levothyroxine Sodium) 75 Mcg Tab 75 Mcg PO DAILY Clonazepam 2 Mg Tab 4 Mg PO HS Carbidopa-Levodopa 25-100 Mg Tab 1 Tab PO TID Aspirin 81 Mg Chew 81 Mg CHEW DAILY Allergies: Coded Allergies: cyclobenzaprine (Unverified Allergy, Severe, stiff, 12/09/17) Active Ordered Medications Inpatient Medications Morphine Sulfate (Morphine Inj) 2 mg Q4H PRN IV PUSH pain >5; Start 12/09/17 at 15:00 Naloxone HCl (Narcan Inj) 0.4 mg UNSCH PRN IV PUSH SEE LABEL COMMENTS; Start at 15:00 Sodium Chloride (NS Flush) 2 ml BID IV FLUSH ; Start 12/09/17 at 21:00 Family History not significant. Social History no smoking or drinking. Physical Exam Vital Signs Vital Signs Date Time Temp Pulse Resp B/P (MAP) Pulse Ox O2 Delivery O2 Flow Rate FiO2 12/09/17 15:15 Nasal Cannula 2.00 12/09/17 15:14 54 16 147/68 (94) 98 Nasal Cannula 2.00 12/09/17 13:16 96 Room Air 12/09/17 13:13 98.1 56 17 124/58 (80) 95 Physical Exam GENERAL: This is a well-nourished, well-developed patient, in no apparent distress. SKIN: No rashes, ecchymoses or lesions. Cool and dry. HEAD: Atraumatic. Normocephalic. No temporal or scalp tenderness. EYES: Pupils equal round and reactive. Extraocular motions intact. No scleral icterus. No injection or drainage. ENT: Nose without bleeding, purulent drainage or septal hematoma. Throat without erythema, tonsillar hypertrophy or exudate. Uvula midline. Airway patent. NECK: Trachea midline. No JVD or lymphadenopathy. Supple, nontender, no meningeal signs. CARDIOVASCULAR: Regular rate and rhythm without murmurs, gallops, or rubs. RESPIRATORY: Clear to auscultation. Breath sounds equal bilaterally. No wheezes , rales, or rhonchi. GASTROINTESTINAL: Abdomen soft, non-tender, nondistended. No hepato-splenomegaly , or palpable masses. No guarding. MUSCULOSKELETAL: right knee is swollen. NEUROLOGICAL: Awake and alert. Cranial nerves II through XII intact. Motor and sensory grossly within normal limits. Five out of 5 muscle strength in all muscle groups. Normal speech. Laboratory Laboratory Tests Test 12/09/17 13:30 White Blood Count 6.1 Red Blood Count 4.51 Hemoglobin 15.9 Hematocrit 44.4 Mean Corpuscular Volume 98.5 Mean Corpuscular Hemoglobin 35.2 Mean Corpuscular Hemoglobin Concent 35.8 Red Cell Distribution Width 12.9 Platelet Count 150 Mean Platelet Volume 9.5 Neutrophils (%) (Auto) 73.6 Lymphocytes (%) (Auto) 13.3 Monocytes (%) (Auto) 10.4 Eosinophils (%) (Auto) 1.8 Basophils (%) (Auto) 0.9 Neutrophils # (Auto) 4.5 Lymphocytes # (Auto) 0.8 Monocytes # (Auto) 0.6 Eosinophils # (Auto) 0.1 Basophils # (Auto) 0.1 CBC Comment DIFF FINAL Differential Comment Prothrombin Time 11.9 Prothromb Time International Ratio 1.2 Activated Partial Thromboplast Time 23.1 Blood Urea Nitrogen 17 Creatinine 1.03 Random Glucose 108 Total Protein 7.0 Albumin 3.9 Calcium Level 8.8 Magnesium Level 2.0 Alkaline Phosphatase 65 Aspartate Amino Transf (AST/SGOT) 23 Alanine Aminotransferase (ALT/SGPT) 12 Total Bilirubin 0.6 Sodium Level 142 Potassium Level 4.3 Chloride Level 111 Carbon Dioxide Level 25.6 Anion Gap 5 Estimat Glomerular Filtration Rate 70 Result Diagram: 12/09/17 1330 12/09/17 1330 Imaging Last Impressions Chest X-Ray 12/09/17 1307 Signed Impressions: Service Date/Time: Saturday, December 09, 2017 13:47 - CONCLUSION: 1. No acute cardiopulmonary findings. Stable compared to prior exam Gunnar Collins MD Knee X-Ray 12/09/17 0000 Signed Impressions: Service Date/Time: Saturday, December 09, 2017 13:49 - CONCLUSION: Patellar fracture as above. Ranjeet Collins MD FACR Caprini VTE Risk Assessment Caprini VTE Risk Assessment: Mod/High Risk (score >= 2) Caprini Risk Assessment Model Point Value = 1 Point Value = 2 Point Value = 3 Point Value = 5 Age 41-60 Minor surgery BMI > 25 kg/m2 Swollen legs Varicose veins or History of unexplained or recurrent spontaneous Oral contraceptives or hormone replacement Sepsis (< 1 month) Serious lung disease, including pneumonia (< 1 month) Abnormal pulmonary function Acute myocardial infarction Congestive heart failure (< 1 month) History of inflammatory bowel disease Medical patient at bed rest Age 61-74 Arthroscopic surgery Major open surgery (> 45 min) Laparoscopic surgery (> 45 min) Malignancy Confined to bed (> 72 hours) Immobilizing plaster cast Central venous access Age >= 75 History of VTE Family history of VTE Factor V Leiden Prothrombin [id number] Lupus anticoagulant Anticardiolipin antibodies Elevated serum homocysteine Heparin-induced thrombocytopenia Other congenital or acquired thrombophilia Stroke (< 1 month) Elective arthroplasty Hip, pelvis, or leg fracture Acute spinal cord injury (< 1 month) Prophylaxis Regimen Total Risk Factor Score Risk Level Prophylaxis Regimen 0-1 Low Early ambulation 2 Moderate Order ONE of the following: *Sequential Compression Device (SCD) *Heparin 5000 units SQ BID 3-4 Higher Order ONE of the following medications: *Heparin 5000 units SQ TID *Enoxaparin/Lovenox 40 mg SQ daily (WT < 150 kg, CrCl > 30 mL/min) *Enoxaparin/Lovenox 30 mg SQ daily (WT < 150 kg, CrCl > 10-29 mL/min) *Enoxaparin/Lovenox 30 mg SQ BID (WT < 150 kg, CrCl > 30 mL/min) AND/OR *Sequential Compression Device (SCD) 5 or more Highest Order ONE of the following medications: *Heparin 5000 units SQ TID (Preferred with Epidurals) *Enoxaparin/Lovenox 40 mg SQ daily (WT < 150 kg, CrCl > 30 mL/min) *Enoxaparin/Lovenox 30 mg SQ daily (WT < 150 kg, CrCl > 10-29 mL/min) *Enoxaparin/Lovenox 30 mg SQ BID (WT < 150 kg, CrCl > 30 mL/min) AND *Sequential Compression Device (SCD) Assessment and Plan Assessment and Plan A/P - right patellar fracture- after a fall continue with pain control- consult ortho. -Parkinson's disease/ hypothyroidism; resume home meds -DVT prophylaxis- pending ortho evaluation. Discussed Condition With the patient. Physician Certification 2 Midnight Certification Type: Admission for Inpatient Services Order for Inpatient Services The services are ordered in accordance with Medicare regulations or non- Medicare payer requirements, as applicable. In the case of services not specified as inpatient-only, they are appropriately provided as inpatient services in accordance with the 2-midnight benchmark. Estimated LOS (days): 2 days is the estimated time the patient will need to remain in the hospital, assuming treatment plan goals are met and no additional complications. Post-Hospital Plan: Not yet determined Problem Qualifiers (1) Transverse fracture of patella: Qualified Codes: S82.034A - Nondisplaced transverse fracture of right patella, initial encounter for closed fracture Bret Ross MD Dec 09, 2017 15:39
[2017-12-09] MEDS ORDERED: ONDANSETRON HCL 4 MG/2 ML VIAL IV PUSH PRN (15:45)
[2017-12-09 16:57] VITALS: BP 154/67; PULSE 51; RESP 18; TEMP 98.7; O2SAT 99
[2017-12-09] MEDS: MORPHINE SULFATE 2 MG/ML INJ IV PUSH PRN ×2 (17:54→22:29)
[2017-12-09] MEDS: SODIUM CHLOR 0.9% 1000 ML INJ 1,000 ML IV SCH (17:58)
[2017-12-09 20:07] VITALS: BP 125/69; PULSE 49; RESP 20; TEMP 98.6; O2SAT 100
[2017-12-09] MEDS: clonazePAM 1 MG TAB PO SCH (21:25)
[2017-12-09] MEDS: CARBIDOPA/LEVODOPA 25 MG/100 MG TAB PO SCH (21:25)
[2017-12-09] MEDS: SODIUM CHLORIDE 0.9% FLUSH 10 ML FLUSH IV FLUSH SCH (21:25)
[2017-12-09] MEDS ORDERED: METOPROLOL TARTRATE 25 MG TAB PO PRN (22:30)
[2017-12-09] MEDS ORDERED: POVIDONE IODINE 5% (ANTISEPSIS KIT) 4 APPLICATIONS EACH NARE PRN (22:30)
[2017-12-09] MEDS ORDERED: SODIUM CHLORID 0.9% 500 ML IV PRN (22:30)
[2017-12-09] MEDS ORDERED: CHLORHEXIDINE GLUCONATE 2 % 1 PACK (2 CLOTHS) TOPICAL PRN (22:30)
[2017-12-09] MEDS ORDERED: LACTATED RINGER'S 1000 ML IV PRN (22:30)
[2017-12-10] VITALS: BP 139/78; PULSE 47; PULSE 54; RESP 16; TEMP 97.7; O2SAT 98
[2017-12-10] MEDS: MORPHINE SULFATE 2 MG/ML INJ IV PUSH PRN ×3 (02:35→10:22)
[2017-12-10 04:00] VITALS: BP 138/66; PULSE 53; PULSE 56; RESP 16; TEMP 96.3; O2SAT 99
[2017-12-10] MEDS: SODIUM CHLOR 0.9% 1000 ML INJ 1,000 ML IV SCH (06:36)
[2017-12-10] MEDS: LEVOTHYROXINE SODIUM 75 MCG TAB PO SCH (06:37)
[2017-12-10 07:23] LABS: BACTERIA, URINE OCC /hpf; BILIRUBIN, URINE NEG (NEG); BLOOD, URINE NEG (NEG); GLUCOSE,URINE NEG (NEG); KETONE, URINE NEG (NEG); MUCUS URINE FEW /lpf (OCC); NITRITE,URINE NEG (NEG); URINE COLOR YELLOW (YELLW/STRAW); URINE LEUKOCYTE ESTERASE MOD (NEG)
[2017-12-10] MEDS: CARBIDOPA/LEVODOPA 25 MG/100 MG TAB PO SCH ×3 (07:41→17:12)
[2017-12-10] MEDS: SODIUM CHLORIDE 0.9% FLUSH 10 ML FLUSH IV FLUSH SCH ×2 (07:41→21:35)
[2017-12-10 08:00] VITALS: BP 138/67; PULSE 63; RESP 18; TEMP 96.2; O2SAT 97
[2017-12-10 08:28] LABS: BICARBONATE 27.3 MEQ/L (21.0-32.0); CALCIUM 8.2 MG/DL (8.5-10.1); CREATININE 1.04 MG/DL (0.60-1.30)
[2017-12-10 09:03] LABS: AUTOMATED NEUTROPHIL # 7.9 TH/MM3 (1.8-7.7); BASOPHIL % 0.3 % (0.0-2.0); EOSINOPHIL % 0.5 % (0.0-4.0); HEMATOCRIT 41.9 % (39.0-51.0); HEMOGLOBIN 14.9 GM/DL (13.0-17.0); LYMPH % 7.8 % (9.0-44.0); LYMPHOCYTE # 0.7 TH/MM3 (1.0-4.8); MEAN CELL VOLUME 99.8 FL (80.0-100.0); MEAN CORPUSCULAR HEMOGLOBIN 35.6 PG (27.0-34.0); MEAN CORPUSCULAR HGB CONC 35.6 % (32.0-36.0); MONO % 7.8 % (0.0-8.0); MONOCYTE # 0.7 TH/MM3 (0-0.9); NEUT % 83.6 % (16.0-70.0); PLATELET COUNT 143 TH/MM3 (150-450); RED CELL DISTRIBUTION WIDTH 12.8 % (11.6-17.2); WHITE BLOOD COUNT 9.5 TH/MM3 (4.0-11.0)
--- NOTE | 2017-12-10 11:27 | HHI.PR ---
Subjective Remarks in no acute distress. pain is controlled. awaiting surgery today. d/w the RN. Objective Vitals Vital Signs Date Time Temp Pulse Resp B/P (MAP) Pulse Ox O2 Delivery O2 Flow Rate FiO2 12/10/17 08:00 96.2 63 18 138/67 (90) 97 12/10/17 04:00 53 12/10/17 04:00 96.3 56 16 138/66 (90) 99 12/10/17 00:00 97.7 54 16 139/78 (98) 98 12/10/17 00:00 47 12/09/17 20:07 98.6 49 20 125/69 (87) 100 12/09/17 19:00 18 12/09/17 16:57 98.7 51 18 154/67 (96) 99 12/09/17 15:15 Nasal Cannula 2.00 12/09/17 15:14 54 16 147/68 (94) 98 Nasal Cannula 2.00 12/09/17 13:16 96 Room Air 12/09/17 13:13 98.1 56 17 124/58 (80) 95 I/O 12/09/17 12/09/17 12/09/17 12/10/17 12/10/17 12/10/17 07:00 15:00 23:00 07:00 15:00 23:00 Intake Total 400 ml 700 ml Balance 400 ml 700 ml Intake Oral 400 ml IV Total 700 ml # Voids 1 2 Result Diagram: 12/10/17 0716 12/10/17 0716 Imaging Last Impressions Chest X-Ray 12/09/17 1307 Signed Impressions: Service Date/Time: Saturday, December 09, 2017 13:47 - CONCLUSION: 1. No acute cardiopulmonary findings. Stable compared to prior exam Gunnar Collins MD Knee X-Ray 12/09/17 0000 Signed Impressions: Service Date/Time: Saturday, December 09, 2017 13:49 - CONCLUSION: Patellar fracture as above. Ranjeet Collins MD FACR Objective Remarks GENERAL: This is a well-nourished, well-developed patient, in no apparent distress. CARDIOVASCULAR: Regular rate and regular rhythm without murmurs, gallops, or rubs. RESPIRATORY: Clear to auscultation. Breath sounds equal bilaterally. No wheezes , rales, or rhonchi. GASTROINTESTINAL: Abdomen soft, non-tender, nondistended. Normal, active bowel sounds MUSCULOSKELETAL: Extremities without clubbing, cyanosis, or edema. NEURO: Alert & Oriented x4 to person, place, time, situation. Moves all ext x4 Medications and IVs Inpatient Medications Carbidopa/Levodopa (Sinemet 25-100 Mg) 1 tab TID PO Last administered on at 07:41; Start 12/09/17 at 18:00 Chlorhexidine Gluconate (Chlorhexidine 2% Cloth) 3 pack PURCHASING COORDINATOR PRN TOPICAL SEE LABEL COMMENTS; Start 12/09/17 at 22:30; Stop 12/12/17 at 22:29 Clonazepam (KlonoPIN) 4 mg HS PO Last administered on 12/09/17at 21:25; Start 12/09/17 at 21:00 Lactated Ringer's 1,000 ml @ 30 mls/hr Q24H PRN IV SEE LABEL COMMENTS Last administered on 12/10/17at 07:29; Start 12/09/17 at 22:30; Stop 12/12/17 at 22:29 Levothyroxine Sodium (Synthroid) 75 mcg DAILY@0600 PO Last administered on at 06:37; Start 12/10/17 at 06:00 Metoprolol Tartrate (Lopressor) 25 mg PURCHASING COORDINATOR PRN PO SEE LABEL COMMENTS; Start 12/09/17 at 22:30; Stop 12/12/17 at 22:29 Morphine Sulfate (Morphine Inj) 2 mg Q4H PRN IV PUSH pain >5 Last administered on 12/10/17at 10:22; Start 12/09/17 at 15:00 Naloxone HCl (Narcan Inj) 0.4 mg UNSCH PRN IV PUSH SEE LABEL COMMENTS; Start at 15:00 Ondansetron HCl (Zofran Inj) 4 mg Q8HR PRN IV PUSH NAUSEA; Start 12/09/17 at 15: 45 Povidone Iodine (Betadine 5% Antisepsis Kit) 1 applic PURCHASING COORDINATOR PRN EACH NARE SEE LABEL COMMENTS; Start 12/09/17 at 22:30; Stop 12/12/17 at 22:29 Sodium Chloride 500 ml @ 30 mls/hr [id number] PRN IV SEE LABEL COMMENTS; Start 12/09/17 at 22:30; Stop 12/12/17 at 22:29 Sodium Chloride (NS Flush) 2 ml BID IV FLUSH Last administered on 12/10/17at 07: 41; Start 12/09/17 at 21:00 A/P Problem List: (1) Transverse fracture of patella ICD Code: S82.033A - Displaced transverse fracture of unspecified patella, initial encounter for closed fracture Status: Acute Assessment and Plan - right patellar fracture- after a fall continue with pain control- consulted ortho- awaiting surgical intervention. -Parkinson's disease/ hypothyroidism; resume home meds -DVT prophylaxis- pending surgery. Problem Qualifiers (1) Transverse fracture of patella: Qualified Codes: S82.034A - Nondisplaced transverse fracture of right patella, initial encounter for closed fracture Bret Ross MD Dec 10, 2017 11:27
[2017-12-10 11:57] VITALS: BP 163/69; PULSE 65; RESP 18; TEMP 98.8; O2SAT 97
[2017-12-10] MEDS ORDERED: ROCURONIUM INJ 50 MG/5 ML SYRINGE IV PUSH ONE (12:00)
[2017-12-10] MEDS ORDERED: PROPOFOL 200 MG/20 ML AMP IV ONE (12:00)
[2017-12-10] MEDS ORDERED: PHENYLEPH/NS 1000 MCG/10 ML SYR IV ONE (12:00)
[2017-12-10] MEDS ORDERED: ESMOLOL HCL 100 MG/10 ML VIAL IV ONE (12:00)
[2017-12-10] MEDS ORDERED: SUCCINYLCHOLINE CHLORIDE 100 MG/5 ML SYRINGE IV PUSH ONE (12:00)
[2017-12-10] MEDS ORDERED: LACTATED RINGER'S 1000 ML INJ 1,000 ML IV ONE (12:00)
[2017-12-10] MEDS ORDERED: NEOSTIGMINE 5 MG/5 ML SYRINGE IV PUSH ONE (12:00)
[2017-12-10] MEDS ORDERED: GLYCOPYRROLATE 1 MG/5 ML SYRINGE IV PUSH ONE (12:00)
[2017-12-10] MEDS ORDERED: hydrALAZINE HCL 20 MG/ML VIAL IV ONE (12:00)
[2017-12-10] MEDS ORDERED: LIDOCAINE HCL 1% PF 5 ML SYRINGE OTHER ONE (12:00)
[2017-12-10] MEDS ORDERED: GENTAMICIN SULFATE 80 MG/2 ML VIAL ONE (12:40)
[2017-12-10] MEDS ORDERED: ceFAZolin 2 GM PREMIX 50 ML ONE (12:40)
[2017-12-10] MEDS ORDERED: GENTAMICIN 80 MG PREMIX 100 ML ONE (12:44)
[2017-12-10] MEDS ORDERED: ACETAMINOPHEN 1000 MG/100 ML 100 ML IV ONE (12:59)
[2017-12-10] MEDS ORDERED: SUGAMMADEX SODIUM 200 MG/2 ML VIAL IV PUSH ONE (14:17)
--- NOTE | 2017-12-10 14:29 | PD.CONS ---
[facility] Service Orthopedic Surgeons Consult Requested By Parish Reason for Consult Fracture of the right patella Primary Care Physician Campbell Baez MD Admission Diagnosis Transverse Patellar fracture. Diagnoses: (1) Transverse fracture of patella Diagnosis: Principal Chief Complaint: Right knee pain and inability to ambulate History of Present Illness This patient is a 77-year-old white male with a known history of Parkinson's disease. He uses a walker from time to time. He was walking when he tripped and sustained a fall landing on his right knee. He was unable to bear weight was brought emergency room. X-rays showed evidence of a displaced right transverse patella fracture. I have been asked to see the patient in consultation regarding the same. Review of Systems Constitutional: DENIES: Diaphoretic episodes, Fatigue, Fever, Weight gain, Weight loss, Chills, Dizziness, Change in appetite, Night Sweats Endocrine: DENIES: Heat/cold intolerance, Polydipsia, Polyuria, Polyphagia Eyes: DENIES: Blurred vision, Diplopia, Eye inflammation, Eye pain, Vision loss , Photosensitivity, Double Vision Ears, nose, mouth, throat: DENIES: Tinnitus, Hearing loss, Vertigo, Nasal discharge, Oral lesions, Throat pain, Hoarseness, Ear Pain, Running Nose, Epistaxis, Sinus Pain, Toothache, Odynophagia Respiratory: DENIES: Apneas, Cough, Snoring, Wheezing, Hemoptysis, Sputum production, Shortness of breath Gastrointestinal: DENIES: Abdominal pain, Black stools, Bloody stools, Constipation, Diarrhea, Nausea, Vomiting, Difficulty Swallowing, Anorexia Genitourinary: DENIES: Sexual dysfunction, Urinary frequency, Urinary incontinence, Urgency, Hematuria, Dysuria, Nocturia, Penile Discharge, Testicular Pain, Testicular Swelling Musculoskeletal: DENIES: Joint pain, Muscle aches, Stiffness, Joint Swelling, Back pain, Neck pain Integumentary: DENIES: Abnormal pigmentation, Nail changes, Pruritus, Rash Hematologic/lymphatic: DENIES: Bruising, Lymphadenopathy Immunologic/allergic: DENIES: Eczema, Urticaria Neurologic: COMPLAINS OF: Abnormal gait, Poor Balance Psychiatric: DENIES: Anxiety, Confusion, Mood changes, Depression, Hallucinations, Agitation, Suicidal Ideation, Homicidal Ideation, Delusions Past Family Social History Past Medical History Parkinson's disease/ hypothyroidism. Past Surgical History prostate surgery/ tonsillectomy. Allergies: Coded Allergies: cyclobenzaprine (Unverified Allergy, Severe, stiff, 12/10/17) Active Ordered Medications Current Medications Medications (Trade) Dose Ordered Sig/Judi Route Start Time Stop Time Status Last Admin (NS Flush) 2 ml UNSCH PRN IV FLUSH 12/09/17 15:00 (NS Flush) 2 ml BID IV FLUSH 12/09/17 21:00 12/10/17 07:41 (Narcan Inj) 0.4 mg UNSCH PRN IV PUSH 12/09/17 15:00 (Morphine Inj) 2 mg Q4H PRN IV PUSH 12/09/17 15:00 12/10/17 10:22 Sodium Chloride 1,000 ml @ 75 mls/hr [id number] IV 12/09/17 16:30 12/10/17 06:36 (Sinemet 25-100 Mg) 1 tab TID PO 12/09/17 18:00 12/10/17 07:41 (KlonoPIN) 4 mg HS PO 12/09/17 21:00 12/09/17 21:25 (Synthroid) 75 mcg DAILY@0600 PO 12/10/17 06:00 12/10/17 06:37 (Zofran Inj) 4 mg Q8HR PRN IV PUSH 12/09/17 15:45 Lactated Ringer's 1,000 ml @ 30 mls/hr Q24H PRN IV 12/09/17 22:30 12/12/17 22:29 12/10/17 07:29 Sodium Chloride 500 ml @ 30 mls/hr [id number] PRN IV 12/09/17 22:30 12/12/17 22:29 (Lopressor) 25 mg BULB FILLER PRN PO 12/09/17 22:30 12/12/17 22:29 (Betadine 5% Antisepsis Kit) 1 applic BULB FILLER PRN EACH NARE 12/09/17 22:30 12/12/17 22:29 (Chlorhexidine 2% Cloth) 3 pack BULB FILLER PRN TOPICAL 12/09/17 22:30 12/12/17 22:29 Reported Meds & Active Scripts Active Reported Tramadol (Tramadol HCl) 50 Mg Tab 50 Mg PO Q4H PRN Levothyroxine (Levothyroxine Sodium) 75 Mcg Tab 75 Mcg PO DAILY Clonazepam 2 Mg Tab 4 Mg PO HS Carbidopa-Levodopa 25-100 Mg Tab 1 Tab PO TID Aspirin 81 Mg Chew 81 Mg CHEW DAILY Family History not significant. Social History no smoking or drinking. Physical Exam Vital Signs Vital Signs Date Time Temp Pulse Resp B/P (MAP) Pulse Ox O2 Delivery O2 Flow Rate FiO2 12/10/17 11:57 98.8 65 18 163/69 (100) 97 12/10/17 08:00 96.2 63 18 138/67 (90) 97 12/10/17 04:00 53 12/10/17 04:00 96.3 56 16 138/66 (90) 99 12/10/17 00:00 97.7 54 16 139/78 (98) 98 12/10/17 00:00 47 12/09/17 20:07 98.6 49 20 125/69 (87) 100 12/09/17 19:00 18 12/09/17 16:57 98.7 51 18 154/67 (96) 99 12/09/17 15:15 Nasal Cannula 2.00 12/09/17 15:14 54 16 147/68 (94) 98 Nasal Cannula 2.00 Physical Exam HEENT: Normocephalic atraumatic pupils equal round reactive. NECK: Supple. No abnormal masses. Full range of motion. CHEST: Clear to auscultation with no rales or rhonchi's or wheezes. HEART: Regular rate and rhythm. No murmurs. ABDOMEN: Soft, nontender, no masses. Normal active bowel sounds. GENITOURINARY: Deferred. MUSCULOSKELETAL: The right leg is in a splint. Moderate swelling. Sensation is normal. He wiggles his toes. No redness or warmth Laboratory Laboratory Tests Test 12/10/17 06:32 12/10/17 07:16 Urine Color YELLOW Urine Turbidity CLEAR Urine pH 7.0 Urine Specific [place] 1.017 Urine Protein NEG Urine Glucose (UA) NEG Urine Ketones NEG Urine Occult Blood NEG Urine Nitrite NEG Urine Bilirubin NEG Urine Urobilinogen LESS THAN 2.0 Urine Leukocyte Esterase MOD Urine RBC 2 Urine WBC 60 Urine Bacteria OCC Urine Mucus FEW Microscopic Urinalysis Comment CULTURE INDICATED White Blood Count 9.5 Red Blood Count 4.20 Hemoglobin 14.9 Hematocrit 41.9 Mean Corpuscular Volume 99.8 Mean Corpuscular Hemoglobin 35.6 Mean Corpuscular Hemoglobin Concent 35.6 Red Cell Distribution Width 12.8 Platelet Count 143 Mean Platelet Volume 10.0 Neutrophils (%) (Auto) 83.6 Lymphocytes (%) (Auto) 7.8 Monocytes (%) (Auto) 7.8 Eosinophils (%) (Auto) 0.5 Basophils (%) (Auto) 0.3 Neutrophils # (Auto) 7.9 Lymphocytes # (Auto) 0.7 Monocytes # (Auto) 0.7 Eosinophils # (Auto) 0.0 Basophils # (Auto) 0.0 CBC Comment DIFF FINAL Differential Comment Hematology Comments Blood Urea Nitrogen 13 Creatinine 1.04 Random Glucose 113 Calcium Level 8.2 Sodium Level 143 Potassium Level 3.9 Chloride Level 108 Carbon Dioxide Level 27.3 Anion Gap 8 Estimat Glomerular Filtration Rate 69 Date/Time Source Procedure Growth Status 12/10/17 06:32 Urine Clean Catch Urine Culture Pending Received Result Diagram: 12/10/17 0716 12/10/17 0716 Imaging Review of x-rays review of the radiolucent rotation shows a mildly comminuted transverse completely displaced fracture of the right patella Assessment & Plan Assessment and Plan Fracture right patella, transverse, 2 part, displaced. Parkinson's disease. PLAN: Surgical treatment: Open treatment internal fixation versus partial patellectomy of the right patella. Likely this patient will be weightbearing as tolerated after surgery and a campus the splint. This patient may need to be transferred to a rehabilitation center postoperatively because of his underlying Parkinson's disease. No dressing change. Lovenox 30 mg daily for 15 days. Follow-up in approximately 2 weeks for suture removal and repeat x-rays Campbell Adkins MD Dec 10, 2017 14:29
[2017-12-10] MEDS ORDERED: Post-op Orders (for Pharmacy) XX ONE (14:30)
[2017-12-10] MEDS ORDERED: ONDANSETRON HCL 4 MG/2 ML VIAL IVP PRN (14:30)
[2017-12-10] MEDS ORDERED: diphenhydrAMINE HCL 25 MG CAP PO PRN (14:30)
[2017-12-10] MEDS ORDERED: MAGNESIUM HYDROXIDE SUSP 30 ML CUP PO PRN (14:30)
[2017-12-10] MEDS ORDERED: ACETAMINOPHEN/HYDROcodone 325 MG/10 MG TAB PO PRN ×2 (14:30)
[2017-12-10] MEDS ORDERED: MORPHINE SULFATE 8 MG/ML INJ IV PUSH PRN (14:30)
--- NOTE | 2017-12-10 14:33 | PD.OP ---
cc: Campbell Adkins MD Operative Report Date of Surgery: Dec 10, 2017 Preoperative Diagnosis: Fracture right patella, transverse, displaced Postoperative Diagnosis: Same Procedure: Open treatment internal fixation right patella fracture with cannulated screws and cerclage wires Anesthesia: Gen. Surgeon: Campbell Adkins Spanish Linguist(s): PRISCILA Gaines Operation and Findings: EBL: 50 cc INDICATION: This patient presents with a recent fall sustaining a transverse and completely displaced fracture of the right patella. This patient presents for surgical treatment. NOTE: Ana Gaines PA-C was present for the entire surgical procedure as my business development assistant. In my medical opinion her skill and care was necessary for proper management of this patient. TOURNIQUET TIME: 40 minutes PROCEDURE: The patient was brought to the operating room and anesthetized in the supine position. The right leg was placed on a bolster. It was scrubbed with alcohol followed by Hibiclens followed by chloro prep and draped sterilely with a tourniquet about the thigh. Antibiotics were given within a one hour time window. A timeout was done. After exsanguination, the tourniquet was inflated to 250 mmHg. An anterior incision was made. The fracture was completely displaced by about 2-1/2 inches. A hematoma was curetted. The end of the bone were prepared. 2 tenaculum clamps were used to bring the fracture into reduced position and held. 3 cannulated screws were utilized using 40 Synthes cannulated screws. 3 pins were placed for checked in the AP lateral plane. Screw length was checked carefully. We then placed Vitallium wire through the cannulated screws crossing the 2 outer screws and using a single cerclage wire in the middle screw. These were tightened according to standard technique and the ends were cut and contoured and bent into the edge of the bone. Intraoperative x-ray showed anatomic alignment. The patient had range of motion easily down to 60 without any discomfort or stress across the fracture site. The wound was irrigated copiously. The retinaculum was repaired with interrupted #1 Vicryl suture. Subcutaneous tissue was approximately 2-0 Vicryl suture and skin with running intradermal 3-0 Vicryl followed by benzoin and Steri-Strips. A sterile dressing was applied. Sponge counts, needle counts and instrument counts were all correct. The patient tolerated procedure well and was taken to recovery in satisfactory condition. FINDINGS: Was a completely displaced transverse minimally comminuted fracture of the patella. Fixation was excellent. Alignment was anatomic. Intraoperative x-ray was utilized for monitoring and intraoperative x-rays were obtained. Campbell Adkins MD Dec 10, 2017 14:33
[2017-12-10] MEDS ORDERED: ENOX30P SQ (14:36)
[2017-12-10] MEDS ORDERED: HYDR-3583 PO (14:36)
[2017-12-10] MEDS ORDERED: GENTAMICIN/SOD CHL 80 MG/100 ML IV ONE (15:00)
[2017-12-10] MEDS ORDERED: *ONDANSETRON 4 MG VIAL PERIprocedural Use ONLY ONE (15:12)
--- NOTE | 2017-12-10 15:18 | RADRPT ---
EXAM DATE/TIME: 12/10/2017 14:11 [place] COMPARISON: No previous studies available for comparison. INDICATIONS : Orif right patella. MEDICAL HISTORY : Hypertension. Gastroesophageal reflux disease. Carcinoma, prostate.Parkinsons. SURGICAL HISTORY : None. ENCOUNTER: Subsequent ACUITY: 2 days PAIN SCORE: Non-responsive. LOCATION: Right Knee. FINDINGS: Status post internal fixation for fracture of the patella. There is good at position alignment of the fracture fragments. The hardware is grossly intact. CONCLUSION: Good position and alignment. Lamberto Andrade MD on December 10, 2017 at 15:16 Board Certified Radiologist. This report was verified electronically.
[2017-12-10] MEDS ORDERED: *morphine SULFATE 4 MG/ML PERIprocedure ONLY ONE (15:22)
[2017-12-10] MEDS: LACTATED RINGER'S 1000 ML INJ 1,000 ML IV SCH (15:26)
[2017-12-10 16:15] VITALS: BP 172/91; PULSE 103; RESP 18; TEMP 98.4; O2SAT 96
[2017-12-10] MEDS ORDERED: DO NOT ADM ANY ANTICOAGULANT DRUGS PRN (17:00)
[2017-12-10] MEDS ORDERED: ENALAPRILAT 1.25 MG/ML VIAL IV PUSH PRN (17:00)
[2017-12-10] MEDS: CALCIUM/VITAMIN D 250 MG/125 U TAB PO SCH (17:12)
[2017-12-10 20:00] VITALS: BP 151/76; PULSE 68; RESP 16; TEMP 96.6; O2SAT 99
[2017-12-10] MEDS: DOCUSATE SODIUM 50 MG/SENNA 8.6 MG TAB PO SCH (21:34)
[2017-12-10] MEDS: clonazePAM 1 MG TAB PO SCH (21:35)
--- NOTE | 2017-12-10 21:43 | EKG ---
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 DOCTOR: Conner Craft Interpretating Date/Time 12/10/2017 21:42:24
[2017-12-11] VITALS (7 sets, daily range): BP systolic 144–155; BP diastolic 58–69; PULSE 60–74; RESP 16–18; TEMP 97.1–100.7; O2SAT 94–100
[2017-12-11] MEDS: LACTATED RINGER'S 1000 ML INJ 1,000 ML IV SCH ×2 (02:06→21:33)
[2017-12-11] MEDS: LEVOTHYROXINE SODIUM 75 MCG TAB PO SCH (04:52)
[2017-12-11] MEDS: SODIUM CHLORIDE 0.9% FLUSH 10 ML FLUSH IV FLUSH SCH ×2 (08:31→20:18)
[2017-12-11] MEDS: CALCIUM/VITAMIN D 250 MG/125 U TAB PO SCH ×3 (08:31→18:46)
[2017-12-11] MEDS: DOCUSATE SODIUM 50 MG/SENNA 8.6 MG TAB PO SCH ×2 (08:31→20:18)
[2017-12-11] MEDS: MULTIVITAMINS/MINERALS THERAPEUTIC TAB PO SCH (08:31)
[2017-12-11] MEDS: CARBIDOPA/LEVODOPA 25 MG/100 MG TAB PO SCH ×3 (08:31→18:46)
--- NOTE | 2017-12-11 12:00 | HHI.PR ---
Subjective Remarks in no acute distress. complaining of some pain to the right knee. at times mildly confused. no other complaints. d/w the RN. Objective Vitals Vital Signs Date Time Temp Pulse Resp B/P (MAP) Pulse Ox O2 Delivery O2 Flow Rate FiO2 12/11/17 09:42 Nasal Cannula 3.00 12/11/17 08:00 97.1 61 18 144/66 (92) 97 12/11/17 04:00 97.6 63 16 155/69 (97) 98 12/11/17 00:00 99.4 66 16 145/66 (92) 97 12/10/17 20:00 96.6 68 16 151/76 (101) 99 12/10/17 16:15 98.4 103 18 172/91 (118) 96 12/10/17 16:00 98.8 85 21 161/69 (99) 95 Nasal Cannula 2 12/10/17 15:45 82 20 166/74 (104) 96 Nasal Cannula 2 12/10/17 15:30 87 21 169/80 (109) 97 Nasal Cannula 2 12/10/17 15:15 90 22 168/81 (110) 98 Nasal Cannula 2 12/10/17 15:00 94 20 186/78 (114) 98 Nasal Cannula 2 12/10/17 14:51 98.9 72 24 195/88 (123) 100 Simple Mask 7 I/O 12/10/17 12/10/17 12/10/17 12/11/17 12/11/17 12/11/17 07:00 15:00 23:00 07:00 15:00 23:00 Intake Total 700 ml 800 ml 250 ml 1100 ml Output Total 1050 ml Balance 700 ml -250 ml 250 ml 1100 ml Intake Oral 0 ml 200 ml IV Total 700 ml 800 ml 50 ml 1100 ml Output Estimated Blood Loss 50 ml Other 1000 ml # Voids 2 2 5 3 # Bowel Movements 0 Result Diagram: 12/10/17 0716 12/10/17 0716 Imaging Last Impressions Knee X-Ray 12/10/17 0000 Signed Impressions: Service Date/Time: December 14:11 - CONCLUSION: Good position and alignment. Lamberto Andrade MD Chest X-Ray 12/09/17 1307 Signed Impressions: Service Date/Time: Saturday, December 09, 2017 13:47 - CONCLUSION: 1. No acute cardiopulmonary findings. Stable compared to prior exam Gunnar Collins MD Objective Remarks GENERAL: This is a well-nourished, well-developed patient, in no apparent distress. CARDIOVASCULAR: Regular rate and regular rhythm without murmurs, gallops, or rubs. RESPIRATORY: Clear to auscultation. Breath sounds equal bilaterally. No wheezes , rales, or rhonchi. GASTROINTESTINAL: Abdomen soft, non-tender, nondistended. Normal, active bowel sounds MUSCULOSKELETAL: Extremities without clubbing, cyanosis, or edema. NEURO: Alert & Oriented x4 to person, place, time, situation. Moves all ext x4 Medications and IVs Inpatient Medications Acetaminophen/ Hydrocodone Bitart ([place] 10-325 Mg) 2 tab Q6H PRN PO PAIN GREATER THAN/EQUAL TO 5; Start 12/10/17 at 14:30 Calcium/Vitamin D (Oscal-D 250-125) 250 mg TID PO Last administered on at 08:31; Start 12/10/17 at 18:00 Carbidopa/Levodopa (Sinemet 25-100 Mg) 1 tab TID PO Last administered on at 08:31; Start 12/09/17 at 18:00 Cefazolin Sodium 1000 mg/Sodium Chloride 100 ml @ 200 mls/hr Q8H IV Last administered on 12/11/17at 08:31; Start 12/10/17 at 18:00; Stop 12/11/17 at 10:29; Status DC Chlorhexidine Gluconate (Chlorhexidine 2% Cloth) 3 pack SUPERVISOR HAIRSPRING FABRICATION PRN TOPICAL SEE LABEL COMMENTS; Start 12/09/17 at 22:30; Stop 12/12/17 at 22:29 Clonazepam (KlonoPIN) 4 mg HS PO Last administered on 12/10/17at 21:35; Start 12/09/17 at 21:00 Diphenhydramine HCl (Benadryl) 25 mg Q6H PRN PO ITCHING; Start 12/10/17 at 14:30 Enalaprilat (Vasotec Inj) 1.25 mg Q8H PRN IV PUSH SBP >180, DBP >100; Start 12/10/17 at 17:00 Enoxaparin Sodium (Lovenox Inj) 30 mg Q24H SQ ; Start 12/11/17 at 14:00 Gentamicin Sulfate/Sodium Chloride 100 ml @ 200 mls/hr ONCE ONCE IV ; Start at 15:00; Stop 12/10/17 at 15:29; Status DC Lactated Ringer's 1,000 ml @ 60 mls/hr [id number] IV Last administered on at 02:06; Start 12/10/17 at 14:18 Levothyroxine Sodium (Synthroid) 75 mcg DAILY@0600 PO Last administered on at 04:52; Start 12/10/17 at 06:00 Magnesium Hydroxide (Milk Of Magnesia Liq) 10 ml Q12H PRN PO CONSTIPATION; Start 12/10/17 at 14:30 Metoprolol Tartrate (Lopressor) 25 mg [employer]OR [employer] FABRICATION PRN PO SEE LABEL COMMENTS; Start 12/09/17 at 22:30; Stop 12/10/17 at 14:51; Status DC Miscellaneous Information ALL NURSING DEPARTME... UNSCH PRN .XX SEE LABEL COMMENTS; Start 12/10/17 at 17:00; Stop 12/11/17 at 16:59 Miscellaneous Information (Post-op Orders (for Pharmacy)) STAT ONCE XX ; Start 12/10/17 at 14:30; Stop 12/10/17 at 14:42; Status DC Morphine Sulfate (Morphine Inj) 5 mg Q4H PRN IV PUSH Breakthrough; Start at 14:30 Multivitamins/ Minerals Therapeutic (Theragran M Tab) 1 tab DAILY PO Last administered on 12/11/17at 08:31; Start 12/11/17 at 09:00 Naloxone HCl (Narcan Inj) 0.4 mg UNSCH PRN IV PUSH SEE LABEL COMMENTS; Start at 15:00 Ondansetron HCl (Zofran Inj) 4 mg Q4H PRN IVP NAUSEA OR VOMITING; Start at 14:30 Povidone Iodine (Betadine 5% Antisepsis Kit) 1 applic [employer] FABRICATION PRN EACH NARE SEE LABEL COMMENTS; Start 12/09/17 at 22:30; Stop 12/10/17 at 14:51; Status DC Senna/Docusate Sodium (Bhargavi-Colace) 1 tab BID PO Last administered on 12/11/17at 08:31; Start 12/10/17 at 21:00 Sodium Chloride 500 ml @ 30 mls/hr [id number] PRN IV SEE LABEL COMMENTS; Start 12/09/17 at 22:30; Stop 12/10/17 at 14:51; Status DC Sodium Chloride (NS Flush) 2 ml BID IV FLUSH Last administered on 12/10/17at 21: 35; Start 12/09/17 at 21:00 A/P Problem List: (1) Transverse fracture of patella ICD Code: S82.033A - Displaced transverse fracture of unspecified patella, initial encounter for closed fracture Status: Acute Assessment and Plan - right patellar fracture- after a fall s/p ORIF. continue with pain control; will decrease the dose of narcotics due to reported confusional episodes. continue PT. ortho following. -questionable UTI- start on IV Rocephin- follow the UC. -Parkinson's disease/ hypothyroidism; resumed home meds -DVT prophylaxis- on Lovenox- per ortho. Discharge Planning dc to SNF tomorrow if stable. Problem Qualifiers (1) Transverse fracture of patella: Qualified Codes: S82.034A - Nondisplaced transverse fracture of right patella, initial encounter for closed fracture Bret Ross MD Dec 11, 2017 12:00
[2017-12-11] MEDS ORDERED: ACETAMINOPHEN/HYDROcodone 325 MG/5 MG TAB PO PRN (12:15)
--- NOTE | 2017-12-11 12:56 | PD.ORT.PN ---
Subjective Subjective Remarks Laying in bed. He notes moderate discomfort but then states 'its ok when Im in bed'. No pain radiating to the calf or foot. No SOB. He states they are setting him up for discharge to [facility]. Objective Vitals Vital Signs Date Time Temp Pulse Resp B/P (MAP) Pulse Ox O2 Delivery O2 Flow Rate FiO2 12/11/17 09:42 Nasal Cannula 3.00 12/11/17 08:00 97.1 61 18 144/66 (92) 97 12/11/17 04:00 97.6 63 16 155/69 (97) 98 12/11/17 00:00 99.4 66 16 145/66 (92) 97 12/10/17 20:00 96.6 68 16 151/76 (101) 99 12/10/17 16:15 98.4 103 18 172/91 (118) 96 12/10/17 16:00 98.8 85 21 161/69 (99) 95 Nasal Cannula 2 12/10/17 15:45 82 20 166/74 (104) 96 Nasal Cannula 2 12/10/17 15:30 87 21 169/80 (109) 97 Nasal Cannula 2 12/10/17 15:15 90 22 168/81 (110) 98 Nasal Cannula 2 12/10/17 15:00 94 20 186/78 (114) 98 Nasal Cannula 2 12/10/17 14:51 98.9 72 24 195/88 (123) 100 Simple Mask 7 I/O 12/10/17 12/10/17 12/10/17 12/11/17 12/11/17 12/11/17 07:00 15:00 23:00 07:00 15:00 23:00 Intake Total 700 ml 800 ml 250 ml 1100 ml Output Total 1050 ml Balance 700 ml -250 ml 250 ml 1100 ml Intake Oral 0 ml 200 ml IV Total 700 ml 800 ml 50 ml 1100 ml Output Estimated Blood Loss 50 ml Other 1000 ml # Voids 2 2 5 3 # Bowel Movements 0 Result Diagram: 12/10/17 0716 12/10/17 0716 Objective Remarks Laying in bed Appears comfortable NAD VSS RLE CKS in place, екатерина/dressings intact, no obvious drainage, mild swelling, +motor at, +sens, +nvi Neg homans Assessment & Plan Ortho Post Op Day #: 1 Problem List: Assessment and Plan pod#1 ORIF Right patella, transverse, 2 part, displaced. Parkinson's disease. Very pleasant. Ortho stable. PT - He can WB as tolerated in CKS only. Walker for gait aids. CKS when he is in bed. No knee flexion. Lovenox for dvt prophylaxis. Ok to change ЕКАТЕРИНА. No dressing changes otherwise unless saturated. PO pain control as needed. Medical following. Ok to discharge to SNF when stable. F/U in 2 weeks at [facility] for xrays. Zahira Srinivasan Dec 11, 2017 12:56
[2017-12-11] MEDS ORDERED: cefTRIAXone INJ 1,000 MG in SODIUM CHLORIDE 0.9% INJ 100 ML IV SCH (13:00)
[2017-12-11] MEDS ORDERED: MORPHINE SULFATE 2 MG/ML INJ IV PUSH PRN (14:30)
[2017-12-11] MEDS: ENOXAPARIN SODIUM 30 MG/0.3 ML SYRINGE SQ SCH (14:58)
[2017-12-11] MEDS: clonazePAM 1 MG TAB PO SCH (20:18)
[2017-12-12] VITALS (7 sets, daily range): BP systolic 103–164; BP diastolic 49–74; PULSE 58–72; RESP 17–18; TEMP 95.6–100.7; O2SAT 95–98
[2017-12-12] MEDS: LEVOTHYROXINE SODIUM 75 MCG TAB PO SCH (05:47)
[2017-12-12] MEDS: ACETAMINOPHEN/HYDROcodone 325 MG/5 MG TAB PO PRN ×3 (05:48→13:24)
--- NOTE | 2017-12-12 06:50 | PD.ORT.PN ---
Subjective Subjective Remarks Laying in bed. No interval changes. No new pain. Waiting for medical for clearance. Still planning on going to [facility]. Objective Vitals Vital Signs Date Time Temp Pulse Resp B/P (MAP) Pulse Ox O2 Delivery O2 Flow Rate FiO2 12/12/17 04:00 99.1 64 18 164/74 (104) 95 12/12/17 04:00 61 12/12/17 00:03 100.7 72 18 155/61 (92) 96 12/12/17 00:00 72 12/11/17 20:29 96 21 12/11/17 20:00 67 12/11/17 20:00 100.7 67 18 148/58 (88) 100 12/11/17 16:00 98.1 74 18 148/61 (90) 96 12/11/17 12:00 97.5 60 18 148/65 (92) 94 12/11/17 09:42 Nasal Cannula 3.00 12/11/17 08:00 97.1 61 18 144/66 (92) 97 I/O 12/11/17 12/11/17 12/11/17 12/12/17 12/12/17 12/12/17 07:00 15:00 23:00 07:00 15:00 23:00 Intake Total 1100 ml 480 ml 480 ml 240 ml Balance 1100 ml 480 ml 480 ml 240 ml Intake Oral 480 ml 480 ml 240 ml IV Total 1100 ml # Voids 3 7 3 4 # Bowel Movements 0 0 0 Result Diagram: 12/10/17 0716 12/10/17 0716 Objective Remarks Laying in bed Appears comfortable NAD VSS RLE CKS in place, екатерина/dressings intact, no obvious drainage, mild swelling, +motor at, +sens, +nvi Neg homans Assessment & Plan Ortho Post Op Day #: 2 Problem List: Assessment and Plan pod#2 ORIF Right patella, transverse, 2 part, displaced. Parkinson's disease. Very pleasant. Ortho stable. PT - He can WB as tolerated in CKS only. Walker for gait aids. CKS when he is in bed. No knee flexion. Lovenox for dvt prophylaxis. Ok to change ЕКАТЕРИНА. No dressing changes otherwise unless saturated. PO pain control as needed. Medical following. Ok to discharge to SNF when stable. F/U in 2 weeks at [facility] for xrays. Zahira Srinivasan Dec 12, 2017 06:50
[2017-12-12] MEDS: SODIUM CHLORIDE 0.9% FLUSH 10 ML FLUSH IV FLUSH SCH (09:00)
[2017-12-12] MEDS: CALCIUM/VITAMIN D 250 MG/125 U TAB PO SCH ×2 (09:22→13:24)
[2017-12-12] MEDS: CARBIDOPA/LEVODOPA 25 MG/100 MG TAB PO SCH ×2 (09:22→13:24)
[2017-12-12] MEDS: MULTIVITAMINS/MINERALS THERAPEUTIC TAB PO SCH (09:22)
[2017-12-12] MEDS: DOCUSATE SODIUM 50 MG/SENNA 8.6 MG TAB PO SCH (09:22)
[2017-12-12] MEDS ORDERED: BISACODYL 10 MG SUPP RECTAL PRN (11:30)
--- NOTE | 2017-12-12 12:46 | HHI.PR ---
Subjective Remarks in no acute distress. complaining of some pain to the right knee. d/w the RN. Objective Vitals Vital Signs Date Time Temp Pulse Resp B/P (MAP) Pulse Ox O2 Delivery O2 Flow Rate FiO2 12/12/17 10:51 98 12/12/17 08:00 97.5 58 17 144/63 (90) 95 12/12/17 04:00 99.1 64 18 164/74 (104) 95 12/12/17 04:00 61 12/12/17 00:03 100.7 72 18 155/61 (92) 96 12/12/17 00:00 72 12/11/17 20:29 96 21 12/11/17 20:00 67 12/11/17 20:00 100.7 67 18 148/58 (88) 100 12/11/17 16:00 98.1 74 18 148/61 (90) 96 I/O 12/11/17 12/11/17 12/11/17 12/12/17 12/12/17 12/12/17 07:00 15:00 23:00 07:00 15:00 23:00 Intake Total 1100 ml 480 ml 480 ml 240 ml Balance 1100 ml 480 ml 480 ml 240 ml Intake Oral 480 ml 480 ml 240 ml IV Total 1100 ml # Voids 3 7 3 4 # Bowel Movements 0 0 0 Result Diagram: 12/10/17 0716 12/10/17 0716 Imaging Last Impressions Knee X-Ray 12/10/17 0000 Signed Impressions: Service Date/Time: December 14:11 - CONCLUSION: Good position and alignment. Lamberto Andrade MD Chest X-Ray 12/09/17 1307 Signed Impressions: Service Date/Time: Saturday, December 09, 2017 13:47 - CONCLUSION: 1. No acute cardiopulmonary findings. Stable compared to prior exam Gunnar Collins MD Objective Remarks GENERAL: This is a well-nourished, well-developed patient, in no apparent distress. CARDIOVASCULAR: Regular rate and regular rhythm without murmurs, gallops, or rubs. RESPIRATORY: Clear to auscultation. Breath sounds equal bilaterally. No wheezes , rales, or rhonchi. GASTROINTESTINAL: Abdomen soft, non-tender, nondistended. Normal, active bowel sounds MUSCULOSKELETAL: Extremities without clubbing, cyanosis, or edema. NEURO: Alert & Oriented x4 to person, place, time, situation. Moves all ext x4 Procedures Open treatment internal fixation right patella fracture with cannulated screws and cerclage wires Medications and IVs Inpatient Medications Acetaminophen/ Hydrocodone Bitart ([place] 5-325 Mg) 2 tab Q4H PRN PO PAIN 6-10 ; Start 12/11/17 at 12:15 Acetaminophen/ Hydrocodone Bitart ([place] 10-325 Mg) 2 tab Q6H PRN PO PAIN GREATER THAN/EQUAL TO 5; Start 12/10/17 at 14:30; Stop 12/11/17 at 12:05; Status DC Bisacodyl (Dulcolax Supp) 10 mg DAILY PRN RECTAL CONSTIPATION Last administered on 12/12/17at 11:32; Start 12/12/17 at 11:30 Calcium/Vitamin D (Oscal-D 250-125) 250 mg TID PO Last administered on at 09:22; Start 12/10/17 at 18:00 Carbidopa/Levodopa (Sinemet 25-100 Mg) 1 tab TID PO Last administered on at 09:22; Start 12/09/17 at 18:00 Cefazolin Sodium 1000 mg/Sodium Chloride 100 ml @ 200 mls/hr Q8H IV Last administered on 12/11/17at 08:31; Start 12/10/17 at 18:00; Stop 12/11/17 at 10:29; Status DC Ceftriaxone Sodium 1000 mg/ Sodium Chloride 100 ml @ 200 mls/hr Q24H IV Last administered on 12/11/17at 14:57; Start 12/11/17 at 13:00 Chlorhexidine Gluconate (Chlorhexidine 2% Cloth) 3 pack ILLUMINATOR PRN TOPICAL SEE LABEL COMMENTS; Start 12/09/17 at 22:30; Stop 12/12/17 at 22:29 Clonazepam (KlonoPIN) 4 mg HS PO Last administered on 12/11/17at 20:18; Start 12/09/17 at 21:00 Diphenhydramine HCl (Benadryl) 25 mg Q6H PRN PO ITCHING; Start 12/10/17 at 14:30 Enalaprilat (Vasotec Inj) 1.25 mg Q8H PRN IV PUSH SBP >180, DBP >100; Start 12/10/17 at 17:00 Enoxaparin Sodium (Lovenox Inj) 30 mg Q24H SQ Last administered on 12/11/17at 14: 58; Start 12/11/17 at 14:00 Gentamicin Sulfate/Sodium Chloride 100 ml @ 200 mls/hr ONCE ONCE IV ; Start at 15:00; Stop 12/10/17 at 15:29; Status DC Lactated Ringer's 1,000 ml @ 60 mls/hr [id number] IV Last administered on at 02:06; Start 12/10/17 at 14:18 Levothyroxine Sodium (Synthroid) 75 mcg DAILY@0600 PO Last administered on 12/12at 05:47; Start 12/10/17 at 06:00 Magnesium Hydroxide (Milk Of Magnesia Liq) 10 ml Q12H PRN PO CONSTIPATION Last administered on 12/11/17at 20:20; Start 12/10/17 at 14:30 Metoprolol Tartrate (Lopressor) 25 mg ILLUMINATOR PRN PO SEE LABEL COMMENTS; Start 12/09/17 at 22:30; Stop 12/10/17 at 14:51; Status DC Miscellaneous Information ALL NURSING DEPARTME... UNSCH PRN .XX SEE LABEL COMMENTS; Start 12/10/17 at 17:00; Stop 12/11/17 at 16:59; Status DC Miscellaneous Information (Post-op Orders (for Pharmacy)) STAT ONCE XX ; Start 12/10/17 at 14:30; Stop 12/10/17 at 14:42; Status DC Morphine Sulfate (Morphine Inj) 2 mg Q4H PRN IV PUSH Breakthrough PAIN; Start 12/11/17 at 14:30 Multivitamins/ Minerals Therapeutic (Theragran M Tab) 1 tab DAILY PO Last administered on 12/12/17at 09:22; Start 12/11/17 at 09:00 Naloxone HCl (Narcan Inj) 0.4 mg UNSCH PRN IV PUSH SEE LABEL COMMENTS; Start at 15:00 Ondansetron HCl (Zofran Inj) 4 mg Q4H PRN IVP NAUSEA OR VOMITING; Start at 14:30 Povidone Iodine (Betadine 5% Antisepsis Kit) 1 applic ILLUMINATOR PRN EACH NARE SEE LABEL COMMENTS; Start 12/09/17 at 22:30; Stop 12/10/17 at 14:51; Status DC Senna/Docusate Sodium (Bhargavi-Colace) 1 tab BID PO Last administered on at 09:22; Start 12/10/17 at 21:00 Sodium Chloride 500 ml @ 30 mls/hr [id number] PRN IV SEE LABEL COMMENTS; Start 12/09/17 at 22:30; Stop 12/10/17 at 14:51; Status DC Sodium Chloride (NS Flush) 2 ml BID IV FLUSH Last administered on 12/10/17at 21: 35; Start 12/09/17 at 21:00 A/P Problem List: (1) Transverse fracture of patella ICD Code: S82.033A - Displaced transverse fracture of unspecified patella, initial encounter for closed fracture Status: Acute Assessment and Plan A/P - right patellar fracture- after a fall s/p ORIF. continue with pain control. continue PT. ortho following. -questionable UTI- switch to po cipro. -Parkinson's disease/ hypothyroidism; resumed home meds -DVT prophylaxis- on Lovenox- per ortho. Discharge Planning dc to SNF today. see med list. f/u; pcp and ortho. d/w the patient and RN. Problem Qualifiers (1) Transverse fracture of patella: Qualified Codes: S82.034A - Nondisplaced transverse fracture of right patella, initial encounter for closed fracture Bret Ross MD Dec 12, 2017 12:46
[2017-12-12] MEDS ORDERED: THERM PO (12:52)
[2017-12-12] MEDS ORDERED: CALC250 PO (12:52)
[2017-12-12] MEDS ORDERED: CIPR250T52 PO (12:52)
[2017-12-12] MEDS ORDERED: CLON2TAB PO (12:52)
--- NOTE | 2017-12-12 12:53 | HHI.DS ---
Discharge Summary Admission Date Dec 09, 2017 at 14:50 Discharge Date: Dec 12, 2017 Admitting Diagnosis Transverse Patellar fracture. (1) Transverse fracture of patella ICD Code: S82.033A - Displaced transverse fracture of unspecified patella, initial encounter for closed fracture Diagnosis: Principal Status: Acute Procedures Open treatment internal fixation right patella fracture with cannulated screws and cerclage wires Brief History - From Admission patient is a 77 y/o male with history of Parkinson's disease, prostate cancer and hypothyroidism who presented to ER with right knee pain after he fell earlier today. he says that he was walking on the sidewalk when he missed a step and fell. he denies any chest pain, nausea, dizziness before the fall. no report of syncopal episode or head trauma. he started to have some pain to the right knee after the fall. pain was mild to moderate at the time of my evaluation.he denies any other complaints. CBC/BMP: 12/10/17 0716 12/10/17 0716 Significant Findings Laboratory Tests Test 12/09/17 13:30 12/10/17 06:32 12/10/17 07:16 Mean Corpuscular Hemoglobin 35.2 PG (27.0-34.0) 35.6 PG (27.0-34.0) Neutrophils (%) (Auto) 73.6 % (16.0-70.0) 83.6 % (16.0-70.0) Monocytes (%) (Auto) 10.4 % (0.0-8.0) Lymphocytes # (Auto) 0.8 TH/MM3 (1.0-4.8) 0.7 TH/MM3 (1.0-4.8) Prothrombin Time 11.9 SEC (9.8-11.6) Activated Partial Thromboplast Time 23.1 SEC (24.3-30.1) Random Glucose 108 MG/DL (74-106) 113 MG/DL (74-106) Chloride Level 111 MEQ/L (98-107) 108 MEQ/L (98-107) Estimat Glomerular Filtration Rate 70 ML/MIN (>89) 69 ML/MIN (>89) Urine Leukocyte Esterase MOD (NEG) Urine WBC 60 /hpf (0-5) Urine Bacteria OCC /hpf (NONE) Urine Mucus FEW /lpf (OCC) Red Blood Count 4.20 MIL/MM3 (4.50-5.90) Platelet Count 143 TH/MM3 (150-450) Lymphocytes (%) (Auto) 7.8 % (9.0-44.0) Neutrophils # (Auto) 7.9 TH/MM3 (1.8-7.7) Calcium Level 8.2 MG/DL (8.5-10.1) Imaging Last Impressions Knee X-Ray 12/10/17 0000 Signed Impressions: Service Date/Time: December 14:11 - CONCLUSION: Good position and alignment. Lamberto Andrade MD Chest X-Ray 12/09/17 1307 Signed Impressions: Service Date/Time: Saturday, December 09, 2017 13:47 - CONCLUSION: 1. No acute cardiopulmonary findings. Stable compared to prior exam Gunnar Collins MD PE at Discharge GENERAL: This is a well-nourished, well-developed patient, in no apparent distress. CARDIOVASCULAR: Regular rate and regular rhythm without murmurs, gallops, or rubs. RESPIRATORY: Clear to auscultation. Breath sounds equal bilaterally. No wheezes , rales, or rhonchi. GASTROINTESTINAL: Abdomen soft, non-tender, nondistended. Normal, active bowel sounds MUSCULOSKELETAL: Extremities without clubbing, cyanosis, or edema. NEURO: Alert & Oriented x4 to person, place, time, situation. Moves all ext x4 Hospital Course - right patellar fracture- after a fall s/p ORIF. continue with pain control. continue PT. ortho following. -questionable UTI- switch to po cipro. -Parkinson's disease/ hypothyroidism; resumed home meds Pt Condition on Discharge: Fair Discharge Disposition: Discharge to SNF Discharge Time: <= 30 minutes Discharge Instructions DIET: Follow Instructions for: Heart Healthy Diet Activities you can perform: Regular-No Restrictions Other Activity Instructions: He can WB as tolerated in CKS only. Walker for gait aids. CKS when he is in bed. No knee flexion. Bret Ross MD Dec 12, 2017 12:53
[2017-12-12] MEDS: ENOXAPARIN SODIUM 30 MG/0.3 ML SYRINGE SQ SCH (13:24)
[2017-12-12] MEDS ORDERED: CIPROFLOXACIN 250 MG TAB PO SCH (14:00)
[2017-12-12] MEDS: LACTATED RINGER'S 1000 ML INJ 1,000 ML IV SCH (14:13)
[2017-12-12] MEDS ORDERED: ASPI-516 CHEW (15:17)
== END 2017-12-12 16:15 | DRG 516 ==
LOC: NEPC 12:44 → NEDA 14:50 → N06A 20:43
PROVIDERS: ADMIT Internal Medicine; ATTEND Internal Medicine
PROC: 0QSD04Z Reposition Right Patella with Internal Fixation Device, Open Approach (ICD-10-PCS; principal; 2017-12-10 13:12)
DX: S82.031A Displaced transverse fracture of right patella, initial encounter for closed fracture (principal); N39.0 Urinary tract infection, site not specified; G20 Parkinson's disease; I10 Essential (primary) hypertension; E03.9 Hypothyroidism, unspecified; W01.0XXA Fall on same level from slipping, tripping and stumbling without subsequent striking against object, initial encounter; E78.00 Pure hypercholesterolemia, unspecified; K21.9 Gastro-esophageal reflux disease without esophagitis; F41.9 Anxiety disorder, unspecified; M19.90 Unspecified osteoarthritis, unspecified site; Y92.480 Sidewalk as the place of occurrence of the external cause; Z85.46 Personal history of malignant neoplasm of prostate
CPT/HCPCS: 71045; 73560; 73564; 76000; 80048; 80053; 81001; 83735; 85025; 85610; 85730; 86850; 86900; 86901; 87086; 93005; 94150; C1713; J0131; J0330; J0360; J0690; J0696; J1580; J1650; J2270; J2370; J2405; J2710; J3010; J7030; J7120; L1830

== ENCOUNTER 2018-02-01 19:32 | Inpatient (IN) | payer MEDICARE, OTHER ==
[~2018-02-01] VITALS: Ht 165.1 cm; Wt 68.4 kg
[~2018-02-01 19:32] MED LIST changes: +CALC250 PO; +CIPR250T52 PO; +ENOX30P SQ; +HYDR-3583 PO; +THERM PO; -TRAM50TA PO
[2018-02-01 19:57] VITALS: BP 127/66; PULSE 50; RESP 20; TEMP 97.5; O2SAT 100
[2018-02-01] MEDS ORDERED: LEVE500 PO (20:18)
[2018-02-01] MEDS ORDERED: CHOL5000 PO (20:18)
[2018-02-01 20:39] VITALS: BP 128/59; PULSE 50; O2SAT 99
[2018-02-01] MEDS ORDERED: SODIUM CHLOR 0.9% 1000 ML INJ 1,000 ML IV SCH (20:45)
[2018-02-01] MEDS ORDERED: SODIUM CHLORIDE 0.9% FLUSH 10 ML FLUSH IV FLUSH PRN (20:45)
[2018-02-01] MEDS ORDERED: PANTOPRAZOLE SODIUM 40 MG VIAL IVP ONE (20:45)
[2018-02-01 21:11] LABS: BILIRUBIN, URINE NEG (NEG); BLOOD, URINE NEG (NEG); GLUCOSE,URINE NEG (NEG); KETONE, URINE NEG (NEG); NITRITE,URINE NEG (NEG); PH, URINE 5.5 (5.0-8.5); URINE COLOR YELLOW (YELLW/STRAW); URINE LEUKOCYTE ESTERASE TRACE (NEG)
[2018-02-01 21:12] LABS: AUTOMATED NEUTROPHIL # 6.4 TH/MM3 (1.8-7.7); BASOPHIL # 0.1 TH/MM3 (0-0.2); EOSINOPHIL # 0.1 TH/MM3 (0-0.4); EOSINOPHIL % 1.9 % (0.0-4.0); HEMATOCRIT 43.4 % (39.0-51.0); HEMOGLOBIN 14.7 GM/DL (13.0-17.0); LYMPH % 8.3 % (9.0-44.0); LYMPHOCYTE # 0.6 TH/MM3 (1.0-4.8); MEAN CELL VOLUME 99.2 FL (80.0-100.0); MEAN CORPUSCULAR HEMOGLOBIN 33.6 PG (27.0-34.0); MEAN CORPUSCULAR HGB CONC 33.9 % (32.0-36.0); MONO % 7.4 % (0.0-8.0); MONOCYTE # 0.6 TH/MM3 (0-0.9); NEUT % 81.4 % (16.0-70.0); PLATELET COUNT 166 TH/MM3 (150-450); RED BLOOD COUNT 4.37 MIL/MM3 (4.50-5.90); WHITE BLOOD COUNT 7.8 TH/MM3 (4.0-11.0)
[2018-02-01 21:16] LABS: BACTERIA, URINE OCC /hpf; RBC, URINE 0-3 /hpf (0-3); SQUAMOUS EPITHELIAL CELL URINE 0-5 /hpf (0-5); WHITE BLOOD CELL CLUMPS FEW
[2018-02-01 21:19] LABS: CHLORIDE 109 MEQ/L (98-107); SODIUM (NA) 143 MEQ/L (136-145)
[2018-02-01 21:22] LABS: ALBUMIN 3.7 GM/DL (3.4-5.0); BICARBONATE 29.2 MEQ/L (21.0-32.0); BLOOD UREA NITROGEN 12 MG/DL (7-18); CALCIUM 9.3 MG/DL (8.5-10.1); GLUCOSE,RANDOM 122 MG/DL (74-106)
[2018-02-01 21:24] LABS: INTERNATIONAL NORMALIZED RATIO 1.2 RATIO; PROTHROMBIN TIME - PATIENT 12.2 SEC (9.8-11.6)
[2018-02-01 21:25] LABS: ALT (GPT) 6 U/L (12-78); AST (GOT) 14 U/L (15-37)
[2018-02-01 21:26] LABS: CREATININE 0.93 MG/DL (0.60-1.30); GLOMERULAR FILTRATION RATE 79 ML/MIN (>89)
[2018-02-01 21:27] LABS: TOTAL BILIRUBIN ADULT 0.7 MG/DL (0.2-1.0); TOTAL PROTEIN 7.1 GM/DL (6.4-8.2)
[2018-02-01 21:28] LABS: ALKALINE PHOSPHATASE 66 U/L (45-117)
[2018-02-01 22:09] VITALS: BP 136/65; PULSE 53; RESP 16; O2SAT 98
--- NOTE | 2018-02-01 22:24 | RADRPT ---
EXAM DATE/TIME: 02/01/2018 21:52 [facility] COMPARISON: No previous studies available for comparison. INDICATIONS : Rectal bleeding. IV CONTRAST: 100 cc Omnipaque 350 (iohexol) IV ORAL CONTRAST: No oral contrast ingested. RADIATION DOSE: 10.04 CTDIvol (mGy) MEDICAL HISTORY : Gastroesophageal reflux disease. Hypertension. Carcinoma, prostate. SURGICAL HISTORY : Prostatectomy. ENCOUNTER: Initial ACUITY: 1 day PAIN SCALE: 5/10 LOCATION: lower quadrant TECHNIQUE: Volumetric scanning of the abdomen and pelvis was performed. Using automated exposure control and ad justment of the mA and/or kV according to patient size, radiation dose was kept as low as reasonably achievable to obtain optimal diagnostic quality images. DICOM format image data is available electro nically for review and comparison. FINDINGS: There is mural thickening and edema of the left colon with some pericolonic inflammatory changes maximus acteristic of a left-sided colitis. Lung bases demonstrate dependent atelectasis. No acute findings in the spleen, adrenals, kidneys or p ancreas. Mild fatty liver. No calcified gallstones or biliary ductal dilatation. No free fluid. No willow wel obstruction. Radiation seed implants in prostate. CONCLUSION: 1. Left-sided colitis with fairly marked mural thickening and some pericolonic fat stranding/inflamma tory change. Robert Lin MD on February 01, 2018 at 22:19 Board Certified Radiologist. This report was verified electronically.
[2018-02-01] MEDS ORDERED: IOHEXOL 350 MG/ML 10 ML VIAL (for RAD DIAG) IVCONTRAST ONE (22:42)
--- NOTE | 2018-02-01 23:04 | PD ---
HPI Chief Complaint: GI Complaint Time Seen by Provider: 20:36 Travel History International Travel<30 days: No Contact w/Intl Traveler<30days: No Traveled to known affect area: No History of Present Illness HPI 78-year-old male complains of rectal bleeding. Patient states that he has been constipated. Patient took stool softener this morning. Patient states that he is not having good bowel movement this afternoon this evening and despite having diarrhea subsequently. Patient noticed some blood per rectum after he has diarrhea. Patient denies abdominal pain. Patient denies any fever chills. Patient has history of prostate cancer status post radiation and implanted seeds. Patient states that he has several rectal surgery secondary to side effect of radiation treatment. Patient has history of hypertension, hyperlipidemia, seizure disorder, hypothyroidism. Patient also has history of kidney stone in the past. Patient on aspirin 81 mg daily. 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, 2017) Neurologic: Yes Parkinson's Disease: Yes Psychiatric: Yes Reproductive: No Respiratory: No Immunizations Current: Yes Radiation Therapy: Yes (IMPLANTED SEEDS, EXTERNAL BEAM RADIATION) Seizures: Yes Thyroid Disease: Yes Tetanus Vaccination: < 5 Years Influenza Vaccination: Yes Past Surgical History Genitourinary Surgery: Yes (PROSTATE, KIDNEY STONES (STENTS)) Tonsillectomy: Yes (1942) Other Surgery: Yes (3 RECTAL SURGERIES) Social History Alcohol Use: Yes (SOCIAL) Tobacco Use: No (QUIT AGE 29) Substance Use: No Allergies-Medications (Allergen,Severity, Reaction): Coded Allergies: cyclobenzaprine (Unverified Allergy, Severe, stiff, 02/01/18) Reported Meds & Prescriptions Reported Meds & Active Scripts Active Aspirin 81 Mg Chew 81 Mg CHEW DAILY 30 Days resume when has finished the course of Lovenox. Thera M Plus (Multivitamins/Minerals Therapeutic) 1 Tab 1 Tab PO DAILY 30 Days Clonazepam 2 Mg Tab 4 Mg PO HS Hydrocodone-Acetamin 10-325 mg (Hydrocodone/Acetaminophen) 10 Mg-325 Mg Tablet 1 Tab PO Q6H PRN Reported Keppra (Levetiracetam) 500 Mg Tab 500 Mg PO BID Vitamin D3 (Cholecalciferol) 5,000 Unit Cap 5,000 Units PO DAILY Levothyroxine (Levothyroxine Sodium) 75 Mcg Tab 75 Mcg PO DAILY Carbidopa-Levodopa 25-100 Mg Tab 1 Tab PO TID Review of Systems General / Constitutional: No: Fever Eyes: No: Visual changes HENT: No: Headaches Cardiovascular: No: Chest Pain or Discomfort Respiratory: No: Shortness of Breath Gastrointestinal: Positive: Hematochezia, No: Abdominal Pain Genitourinary: No: Dysuria Musculoskeletal: No: Pain Skin: No Rash Neurologic: No: Weakness Psychiatric: No: Depression Endocrine: No: Polydipsia Hematologic/Lymphatic: No: Easy Bruising Physical Exam Narrative GENERAL: Well-nourished, well-developed patient. SKIN: Focused skin assessment warm/dry. HEAD: Normocephalic. EYES: No scleral icterus. No injection or drainage. NECK: Supple, trachea midline. No JVD or lymphadenopathy. CARDIOVASCULAR: Regular rate and rhythm without murmurs, gallops, or rubs. RESPIRATORY: Breath sounds equal bilaterally. No accessory muscle use. GASTROINTESTINAL: Abdomen soft, non-tender, nondistended. Rectal exam: Patient has some fresh blood at the rectum however no active bleeding. Internal/ external hemorrhoids noted. No active bleeding. MUSCULOSKELETAL: No cyanosis, or edema. BACK: Nontender without obvious deformity. No CVA tenderness. Neurologic exam: Patient is awake and alert oriented 3. No obvious focal neurological deficit. Data Data Last Documented VS Vital Signs Date Time Temp Pulse Resp B/P (MAP) Pulse Ox O2 Delivery O2 Flow Rate FiO2 02/01/18 22:09 53 16 136/65 (88) 98 Room Air 02/01/18 19:57 97.5 Orders Orders Complete Blood Count With Diff (02/01/18 20:45) Comprehensive Metabolic Panel (02/01/18 20:45) Prothrombin Time / Inr (Pt) (02/01/18 20:45) Act Partial Throm Time (Ptt) (02/01/18 20:45) Urinalysis - C+S If Indicated (02/01/18 20:45) Ct Abd/Pel W Iv Contrast(Rout) (02/01/18 20:45) Iv Access Insert/Monitor (02/01/18 20:45) Ecg Monitoring (02/01/18 20:45) Oximetry (02/01/18 20:45) Pantoprazole Inj (Protonix Inj) (02/01/18 20:45) Sodium Chlor 0.9% 1000 Ml Inj (Ns 1000 M (02/01/18 20:45) Sodium Chloride 0.9% Flush (Ns Flush) (02/01/18 20:45) Type And Screen (02/01/18 20:46) Urine Culture (02/01/18 20:55) Iohexol 350 Inj (Omnipaque 350 Inj) (02/01/18 22:42) Labs Laboratory Tests Test 02/01/18 20:55 White Blood Count 7.8 TH/MM3 Red Blood Count 4.37 MIL/MM3 Hemoglobin 14.7 GM/DL Hematocrit 43.4 % Mean Corpuscular Volume 99.2 FL Mean Corpuscular Hemoglobin 33.6 PG Mean Corpuscular Hemoglobin Concent 33.9 % Red Cell Distribution Width 13.0 % Platelet Count 166 TH/MM3 Mean Platelet Volume 10.0 FL Neutrophils (%) (Auto) 81.4 % Lymphocytes (%) (Auto) 8.3 % Monocytes (%) (Auto) 7.4 % Eosinophils (%) (Auto) 1.9 % Basophils (%) (Auto) 1.0 % Neutrophils # (Auto) 6.4 TH/MM3 Lymphocytes # (Auto) 0.6 TH/MM3 Monocytes # (Auto) 0.6 TH/MM3 Eosinophils # (Auto) 0.1 TH/MM3 Basophils # (Auto) 0.1 TH/MM3 CBC Comment DIFF FINAL Differential Comment Prothrombin Time 12.2 SEC Prothromb Time International Ratio 1.2 RATIO Activated Partial Thromboplast Time 24.9 SEC Urine Color YELLOW Urine Turbidity CLEAR Urine pH 5.5 Urine Specific [place] 1.020 Urine Protein NEG mg/dL Urine Glucose (UA) NEG mg/dL Urine Ketones NEG mg/dL Urine Occult Blood NEG Urine Nitrite NEG Urine Bilirubin NEG Urine Urobilinogen 0.2 MG/DL Urine Leukocyte Esterase TRACE Urine RBC 0-3 /hpf Urine WBC 20-24 /hpf Urine WBC Clumps FEW Urine Squamous Epithelial Cells 0-5 /hpf Urine Bacteria OCC /hpf Microscopic Urinalysis Comment CULTURE INDICATED Blood Urea Nitrogen 12 MG/DL Creatinine 0.93 MG/DL Random Glucose 122 MG/DL Total Protein 7.1 GM/DL Albumin 3.7 GM/DL Calcium Level 9.3 MG/DL Alkaline Phosphatase 66 U/L Aspartate Amino Transf (AST/SGOT) 14 U/L Alanine Aminotransferase (ALT/SGPT) 6 U/L Total Bilirubin 0.7 MG/DL Sodium Level 143 MEQ/L Potassium Level 3.6 MEQ/L Chloride Level 109 MEQ/L Carbon Dioxide Level 29.2 MEQ/L Anion Gap 5 MEQ/L Estimat Glomerular Filtration Rate 79 ML/MIN MDM Medical Decision Making Medical Screen Exam Complete: Yes Emergency Medical Condition: Yes Interpretation(s) 23:21 PM. Last Impressions Abdomen/Pelvis CT 02/01/182044 Signed Impressions: Service Date/Time: Thursday, February 01, 2018 21:52 - CONCLUSION: 1. Left-sided colitis with fairly marked mural thickening and some pericolonic fat stranding/inflammatory change. Robert Lin MD 23:21 PM. CBC WBC 7.8. Hemoglobin 14.7 hematocrit 43.4. 81 neutrophil. GFR 79. CMP otherwise within normal limits. UA positive WBC and bacteria. Differential Diagnosis Differential diagnoses including hemorrhoidal bleed, AV malformation, diverticulosis, diverticulitis. Narrative Course 78-year-old male with rectal bleeding. Normal saline solution 100 cc an hour. Protonix 40 mg IV. Zosyn 3.375 g IV. Flagyl 500 mg IV. Diagnosis Primary Impression: GI bleed Qualified Codes: K92.2 - Gastrointestinal hemorrhage, unspecified Additional Impressions: Colitis UTI (urinary tract infection) Qualified Codes: N30.00 - Acute cystitis without hematuria Admitting Information Admitting Physician Requests: Admit Celestine Galeano MD Feb 01, 2018 23:04
[2018-02-01] MEDS ORDERED: PIPERACIL-TAZO 3.375 GM PREMIX 50 ML IV ONE (23:30)
[2018-02-01] MEDS ORDERED: metroNIDAZOLE 500 MG INJ 100 ML IV ONE (23:30)
[2018-02-02] MEDS ORDERED: NALOXONE HCL 0.4 MG/ML AMP IV PUSH PRN
[2018-02-02] MEDS ORDERED: SENNOSIDES 8.6 MG TAB PO PRN
[2018-02-02] MEDS ORDERED: MAGNESIUM HYDROXIDE SUSP 30 ML CUP PO PRN
[2018-02-02] MEDS ORDERED: ONDANSETRON HCL 4 MG/2 ML VIAL IVP PRN
[2018-02-02] MEDS ORDERED: LACTULOSE SYRUP 20 GM/30 ML CUP PO PRN
[2018-02-02] MEDS ORDERED: SODIUM CHLORIDE 0.9% FLUSH 10 ML FLUSH IV FLUSH PRN
[2018-02-02] MEDS ORDERED: BISACODYL 10 MG SUPP RECTAL PRN
[2018-02-02] MEDS: SODIUM CHLOR 0.9% 1000 ML INJ 1,000 ML IV SCH ×2 (01:37→11:26)
[2018-02-02 02:00] VITALS: BP 154/71; PULSE 47; RESP 20; TEMP 98; O2SAT 99
[2018-02-02] MEDS: PIPERACIL-TAZO 3.375 GM PREMIX 50 ML IV SCH ×3 (06:28→18:00)
[2018-02-02] MEDS ORDERED: PIPERACIL-TAZO 3.375 GM PREMIX 50 ML IV SCH (07:00)
[2018-02-02 08:00] VITALS: BP 127/65; PULSE 44; RESP 20; TEMP 97.8; O2SAT 95
[2018-02-02] MEDS: metroNIDAZOLE 500 MG INJ 100 ML IV SCH ×3 (08:00→22:54)
[2018-02-02] MEDS: PANTOPRAZOLE SODIUM 40 MG VIAL IV PUSH SCH (08:01)
[2018-02-02] MEDS: SODIUM CHLORIDE 0.9% FLUSH 10 ML FLUSH IV FLUSH SCH ×2 (08:01→20:20)
[2018-02-02] MEDS: DOCUSATE SODIUM 50 MG/SENNA 8.6 MG TAB PO SCH ×2 (08:01→22:52)
[2018-02-02 08:51] LABS: AUTOMATED NEUTROPHIL # 3.9 TH/MM3 (1.8-7.7); BASOPHIL % 0.6 % (0.0-2.0); EOSINOPHIL # 0.2 TH/MM3 (0-0.4); EOSINOPHIL % 4.2 % (0.0-4.0); HEMATOCRIT 37.5 % (39.0-51.0); HEMOGLOBIN 13.2 GM/DL (13.0-17.0); LYMPH % 14.7 % (9.0-44.0); LYMPHOCYTE # 0.8 TH/MM3 (1.0-4.8); MEAN CELL VOLUME 99.9 FL (80.0-100.0); MEAN CORPUSCULAR HEMOGLOBIN 35.3 PG (27.0-34.0); MEAN CORPUSCULAR HGB CONC 35.3 % (32.0-36.0); MEAN PLATELET VOLUME 9.9 FL (7.0-11.0); MONO % 10.2 % (0.0-8.0); MONOCYTE # 0.6 TH/MM3 (0-0.9); NEUT % 70.3 % (16.0-70.0); PLATELET COUNT 147 TH/MM3 (150-450); RED BLOOD COUNT 3.75 MIL/MM3 (4.50-5.90); RED CELL DISTRIBUTION WIDTH 13.3 % (11.6-17.2); WHITE BLOOD COUNT 5.5 TH/MM3 (4.0-11.0)
[2018-02-02 09:01] LABS: CHLORIDE 113 MEQ/L (98-107); SODIUM (NA) 145 MEQ/L (136-145)
[2018-02-02 09:05] LABS: ALBUMIN 3.2 GM/DL (3.4-5.0); CALCIUM 8.6 MG/DL (8.5-10.1); GLUCOSE,RANDOM 87 MG/DL (74-106)
[2018-02-02 09:06] LABS: BLOOD UREA NITROGEN 11 MG/DL (7-18)
[2018-02-02 10:06] LABS: ALKALINE PHOSPHATASE 57 U/L (45-117); ALT (GPT) 14 U/L (12-78); AST (GOT) 13 U/L (15-37); CREATININE 0.88 MG/DL (0.60-1.30); GLOMERULAR FILTRATION RATE 84 ML/MIN (>89); TOTAL BILIRUBIN ADULT 0.7 MG/DL (0.2-1.0)
[2018-02-02 12:00] VITALS: BP 137/58; PULSE 57; RESP 20; TEMP 97.8; O2SAT 95
--- NOTE | 2018-02-02 12:56 | HHI.HP ---
[facility] Campbell Baez MD Admission Diagnosis GI bleed. Colitis. Diagnoses: Chief Complaint: Intestinal bleeding with constipation Travel History International Travel<30 Days: No Contact w/Intl Traveler <30 Da: No Traveled to Known Affected Are: No History of Present Illness This patient is a 78-year-old gentleman with a history of prostate cancer and 3 of rectal surgeries per the patient related to radiation. He presents with several days of constipation with some bloody stool. He has not had a lot of pain. He came to the emergency room for further evaluation. He has gross streaky blood with stool. He has internal and external hemorrhoids on exam as well as CT findings of colitis. Patient was recently in the hospital in December to have his right knee replaced. Patient denies diarrhea. He has not had a fever. Patient been admitted to the hospital for further evaluation and treatment of acute bleeding with colitis Review of Systems Constitutional: DENIES: Diaphoretic episodes, Fatigue, Fever, Weight gain, Weight loss, Chills, Dizziness, Change in appetite, Night Sweats Endocrine: DENIES: Heat/cold intolerance, Polydipsia, Polyuria, Polyphagia Eyes: DENIES: Blurred vision, Diplopia, Eye inflammation, Eye pain, Vision loss , Photosensitivity, Double Vision Ears, nose, mouth, throat: DENIES: Tinnitus, Hearing loss, Vertigo, Nasal discharge, Oral lesions, Throat pain, Hoarseness, Ear Pain, Running Nose, Epistaxis, Sinus Pain, Toothache, Odynophagia Respiratory: DENIES: Apneas, Cough, Snoring, Wheezing, Hemoptysis, Sputum production, Shortness of breath Cardiovascular: DENIES: Chest pain, Palpitations, Syncope, Dyspnea on Exertion , PND, Lower Extremity Edema, Orthopnea, Claudication Gastrointestinal: COMPLAINS OF: Abdominal pain, Bloody stools, DENIES: Black stools, Constipation, Diarrhea, Nausea, Vomiting, Difficulty Swallowing, Anorexia Integumentary: DENIES: Abnormal pigmentation, Nail changes, Pruritus, Rash Hematologic/lymphatic: DENIES: Bruising, Lymphadenopathy Immunologic/allergic: DENIES: Eczema, Urticaria Neurologic: DENIES: Abnormal gait, Headache, Localized weakness, Paresthesias, Seizures, Speech Problems, Tremor, Poor Balance Psychiatric: DENIES: Anxiety, Confusion, Mood changes, Depression, Hallucinations, Agitation, Suicidal Ideation, Homicidal Ideation, Delusions Except as stated in HPI: all other systems reviewed are Neg Past Family Social History Past Medical History History of prostate cancer, rectal surgery (practitioner has ) Postpolio syndrome Right knee surgery Past Surgical History Right knee surgery 12/2007 Reported Medications Reviewed in the EMR, nothing new Allergies: Coded Allergies: cyclobenzaprine (Unverified Allergy, Severe, stiff, 02/01/18) Active Ordered Medications Reviewed in the EMR Family History Mother and father from chronic tobacco alcohol dependency Physical Exam Vital Signs Vital Signs Date Time Temp Pulse Resp B/P (MAP) Pulse Ox O2 Delivery O2 Flow Rate FiO2 02/02/18 08:00 97.8 44 20 127/65 (85) 95 02/02/18 02:00 98.0 47 20 154/71 (98) 99 02/02/18 01:50 02/01/18 22:09 53 16 136/65 (88) 98 Room Air 02/01/18 20:39 50 128/59 (82) 99 Room Air 02/01/18 19:57 97.5 50 20 127/66 (86) 100 Physical Exam GENERAL: This is a well-nourished, well-developed patient, in no apparent distress. SKIN: No rashes, ecchymoses or lesions. Cool and dry. HEAD: Atraumatic. Normocephalic. No temporal or scalp tenderness. EYES: Pupils equal round and reactive. Extraocular motions intact. No scleral icterus. No injection or drainage. ENT: Nose without bleeding, purulent drainage or septal hematoma. Throat without erythema, tonsillar hypertrophy or exudate. Uvula midline. Airway patent. NECK: Trachea midline. No JVD or lymphadenopathy. Supple, nontender, no meningeal signs. CARDIOVASCULAR: Regular rate and rhythm without murmurs, gallops, or rubs. RESPIRATORY: Clear to auscultation. Breath sounds equal bilaterally. No wheezes , rales, or rhonchi. GASTROINTESTINAL: Abdomen soft, non-tender, nondistended. No hepato-splenomegaly , or palpable masses. No guarding. MUSCULOSKELETAL: Extremities without clubbing, cyanosis, or edema. No joint tenderness, effusion, or edema noted. No calf tenderness. Negative Homans sign bilaterally. NEUROLOGICAL: Awake and alert. Cranial nerves II through XII intact. Motor and sensory grossly within normal limits. Five out of 5 muscle strength in all muscle groups. Normal speech. Laboratory Laboratory Tests Test 02/01/18 20:55 02/02/18 08:00 02/02/18 09:15 White Blood Count 7.8 5.5 Red Blood Count 4.37 3.75 Hemoglobin 14.7 13.2 Hematocrit 43.4 37.5 Mean Corpuscular Volume 99.2 99.9 Mean Corpuscular Hemoglobin 33.6 35.3 Mean Corpuscular Hemoglobin Concent 33.9 35.3 Red Cell Distribution Width 13.0 13.3 Platelet Count 166 147 Mean Platelet Volume 10.0 9.9 Neutrophils (%) (Auto) 81.4 70.3 Lymphocytes (%) (Auto) 8.3 14.7 Monocytes (%) (Auto) 7.4 10.2 Eosinophils (%) (Auto) 1.9 4.2 Basophils (%) (Auto) 1.0 0.6 Neutrophils # (Auto) 6.4 3.9 Lymphocytes # (Auto) 0.6 0.8 Monocytes # (Auto) 0.6 0.6 Eosinophils # (Auto) 0.1 0.2 Basophils # (Auto) 0.1 0.0 CBC Comment DIFF FINAL DIFF FINAL Differential Comment Prothrombin Time 12.2 Prothromb Time International Ratio 1.2 Activated Partial Thromboplast Time 24.9 Urine Color YELLOW Urine Turbidity CLEAR Urine pH 5.5 Urine Specific [place] 1.020 Urine Protein NEG Urine Glucose (UA) NEG Urine Ketones NEG Urine Occult Blood NEG Urine Nitrite NEG Urine Bilirubin NEG Urine Urobilinogen 0.2 Urine Leukocyte Esterase TRACE Urine RBC 0-3 Urine WBC 20-24 Urine WBC Clumps FEW Urine Squamous Epithelial Cells 0-5 Urine Bacteria OCC Microscopic Urinalysis Comment CULTURE INDICATED Blood Urea Nitrogen 12 11 Creatinine 0.93 0.88 Random Glucose 122 87 Total Protein 7.1 6.0 Albumin 3.7 3.2 Calcium Level 9.3 8.6 Alkaline Phosphatase 66 57 Aspartate Amino Transf (AST/SGOT) 14 13 Alanine Aminotransferase (ALT/SGPT) 6 14 Total Bilirubin 0.7 0.7 Sodium Level 143 145 Potassium Level 3.6 3.4 Chloride Level 109 113 Carbon Dioxide Level 29.2 26.0 Anion Gap 5 6 Estimat Glomerular Filtration Rate 79 84 Date/Time Source Procedure Growth Status 02/02/18 09:15 Stool Stool Pending Received 02/01/18 20:55 Urine Clean Catch Urine Culture - Preliminary NO GROWTH IN 24 HOURS. Resulted Result Diagram: 02/02/18 0800 02/02/18 0800 Imaging Last Impressions Abdomen/Pelvis CT 02/01/182044 Signed Impressions: Service Date/Time: Thursday, February 01, 2018 21:52 - CONCLUSION: 1. Left-sided colitis with fairly marked mural thickening and some pericolonic fat stranding/inflammatory change. Robert Lin MD Caprinbianca VTE Risk Assessment Caprini VTE Risk Assessment: Mod/High Risk (score >= 2) Caprini Risk Assessment Model Point Value = 1 Point Value = 2 Point Value = 3 Point Value = 5 Age 41-60 Minor surgery BMI > 25 kg/m2 Swollen legs Varicose veins or History of unexplained or recurrent spontaneous Oral contraceptives or hormone replacement Sepsis (< 1 month) Serious lung disease, including pneumonia (< 1 month) Abnormal pulmonary function Acute myocardial infarction Congestive heart failure (< 1 month) History of inflammatory bowel disease Medical patient at bed rest Age 61-74 Arthroscopic surgery Major open surgery (> 45 min) Laparoscopic surgery (> 45 min) Malignancy Confined to bed (> 72 hours) Immobilizing plaster cast Central venous access Age >= 75 History of VTE Family history of VTE Factor V Leiden Prothrombin [id number] Lupus anticoagulant Anticardiolipin antibodies Elevated serum homocysteine Heparin-induced thrombocytopenia Other congenital or acquired thrombophilia Stroke (< 1 month) Elective arthroplasty Hip, pelvis, or leg fracture Acute spinal cord injury (< 1 month) Prophylaxis Regimen Total Risk Factor Score Risk Level Prophylaxis Regimen 0-1 Low Early ambulation 2 Moderate Order ONE of the following: *Sequential Compression Device (SCD) *Heparin 5000 units SQ BID 3-4 Higher Order ONE of the following medications: *Heparin 5000 units SQ TID *Enoxaparin/Lovenox 40 mg SQ daily (WT < 150 kg, CrCl > 30 mL/min) *Enoxaparin/Lovenox 30 mg SQ daily (WT < 150 kg, CrCl > 10-29 mL/min) *Enoxaparin/Lovenox 30 mg SQ BID (WT < 150 kg, CrCl > 30 mL/min) AND/OR *Sequential Compression Device (SCD) 5 or more Highest Order ONE of the following medications: *Heparin 5000 units SQ TID (Preferred with Epidurals) *Enoxaparin/Lovenox 40 mg SQ daily (WT < 150 kg, CrCl > 30 mL/min) *Enoxaparin/Lovenox 30 mg SQ daily (WT < 150 kg, CrCl > 10-29 mL/min) *Enoxaparin/Lovenox 30 mg SQ BID (WT < 150 kg, CrCl > 30 mL/min) AND *Sequential Compression Device (SCD) Assessment and Plan Problem List: (1) GI bleed ICD Code: K92.2 - Gastrointestinal hemorrhage, unspecified Status: Acute Plan: Stable, follow up hg (2) Colitis ICD Code: K52.9 - Noninfective gastroenteritis and colitis, unspecified Status: Acute Plan: Continue metronidazole, zosyn r/o c diff (3) Bradycardia ICD Code: R00.1 - Bradycardia, unspecified Plan: This is asymptomatic, will continue to follow as needed (4) Parkinsons ICD Code: G20 - Parkinson's disease Status: Acute Plan: Continue patient's home medications carbidopa levodopa Patient on seizure therapy as well Problem Qualifiers (1) GI bleed: Qualified Codes: K92.2 - Gastrointestinal hemorrhage, unspecified Rylee Myles MD February 02, 2018 12:56
[2018-02-02] MEDS: CHOLECALCIFEROL (VIT D3) 5000 UNIT CAP PO SCH (15:29)
[2018-02-02] MEDS: levETIRAcetam 500 MG TAB PO SCH ×2 (15:29→22:52)
[2018-02-02] MEDS: LEVOTHYROXINE SODIUM 75 MCG TAB PO SCH (15:29)
[2018-02-02] MEDS: MULTIVITAMINS/MINERALS THERAPEUTIC TAB PO SCH (15:29)
[2018-02-02 16:00] VITALS: BP 136/66; PULSE 52; RESP 18; TEMP 97.9; O2SAT 95
[2018-02-02] MEDS ORDERED: MAGNESIUM CITRATE SOLN 300 ML BTL PO ONE ×2 (16:00→20:00)
[2018-02-02] MEDS: CARBIDOPA/LEVODOPA 25 MG/100 MG TAB PO SCH (18:01)
--- NOTE | 2018-02-02 19:34 | MB ---
cc: Hamida Cunningham MD, Beatrice S MD DATE: 02/02/2018 REFERRING PHYSICIAN: Dr. Myles. REASON FOR CONSULTATION: Rectal bleed, colitis. HISTORY OF PRESENT ILLNESS: Mr. Billy is a very pleasant 78-year-old gentleman with multiple medical problems who came to the emergency room with complaints of rectal bleed. The patient stated that he usually has constipation and takes stool softeners every day. He initially had some hard stools during multiple bowel movements followed by some bright red blood. No further episodes since his admission here. He denies any abdominal pain, nausea, vomiting, fever or chills. No history of recent antibiotic use or recent travel. The patient was recently admitted to the hospital for right knee replacement. Denies any antibiotic use. He did have some weight loss, approximately 10 pounds for the last couple of weeks. He states he has a good diet with a lot of fiber in it. His last colonoscopy was 8 years ago. According to him, everything was normal. His CT abdomen and pelvis was done after his admission and showed left-sided colitis with possible ischemic colitis. PAST MEDICAL HISTORY: Prostate cancer, rectal surgery, postpolio syndrome, Parkinson's and seizures, hypothyroidism. PAST SURGICAL HISTORY: Right knee surgery. ALLERGIES: CYCLOBENZAPRINE. FAMILY HISTORY: No family history of colon cancer or any other GI pathology. MEDICATIONS AT THIS TIME IN THE HOSPITAL: Sinemet, vitamin D3, Keppra, multivitamins, Protonix, metronidazole. He was given piperacillin, Zofran, naloxone, milk of magnesia, Senokot , Lactulose p.r.n. REVIEW OF SYSTEMS: CONSTITUTIONAL: He denies any fever, chills, weight loss or weight gain. ENT: No alteration in baseline hearing or visual activity. PULMONARY: Denies any chest pain, shortness of breath. GASTROINTESTINAL: As above. GENITOURINARY: Denies dysuria or hematuria. HEMATOLOGICAL: Denies any history of anemia or bleeding disorder. SKIN: No alteration in baseline skin lesion. NEUROLOGIC: No history of TIA or CVA kind of symptoms. PHYSICAL EXAMINATION: GENERAL: The patient is sitting comfortably in bed in no acute distress. VITAL SIGNS: His temperature is 97.8, pulse 57, respirations 20, blood pressure 137/58, saturation 95%. HEENT: PERRLA. NECK: No JVD. No lymphadenopathy. CHEST: Clear to auscultation and palpation. CARDIOVASCULAR: S1, S2. No murmur. ABDOMEN: Soft, nontender. Bowel sounds are present. CENTRAL NERVOUS SYSTEM: Awake, alert, oriented x 3. No focal signs identified. SKIN: Recent scar tissue over the right knee. LABORATORY DATA: His labs were reviewed. His hemoglobin ____ 13.2, was 14.7; white count 5.5; platelets 147, slightly decreased from the baseline. PT, INR normal. Chemistry essentially normal. CT abdomen and pelvis as described. He had a previous CT abdomen and pelvis earlier this year, which showed normal and stable examination. IMPRESSION: Rectal bleed, most likely secondary to left-sided colitis, suspect ischemic colitis, but other etiologies including infectious colitis and inflammatory bowel disease have to be ruled out. Rectal bleed, hemodynamically stable and no further episodes of bleeding. RECOMMENDATION: Colonoscopy in the morning. Clear liquid diet. Stool for Clostridium difficile and cultures to rule out Escherichia coli, even though I doubt that. Continue current management. Risks and benefits were discussed with the patient. Monitor H and H closely. I would like to thank Dr. Myles for referring him to our office for consultation. Hamida Cunningham MD BSB/SA/ , 04:40 PM , 05:09 PM
[2018-02-02 20:00] VITALS: BP 166/74; PULSE 53; RESP 18; TEMP 98.4; O2SAT 97
[2018-02-03 00:16] VITALS: BP 162/77; PULSE 55; RESP 20; TEMP 97.8; O2SAT 94
[2018-02-03] MEDS: SODIUM CHLOR 0.9% 1000 ML INJ 1,000 ML IV SCH ×2 (00:51→13:21)
[2018-02-03] MEDS: PIPERACIL-TAZO 3.375 GM PREMIX 50 ML IV SCH ×2 (03:45→06:16)
[2018-02-03] MEDS: LEVOTHYROXINE SODIUM 75 MCG TAB PO SCH (06:16)
[2018-02-03 08:00] VITALS: BP 150/70; PULSE 48; RESP 18; TEMP 96.4; O2SAT 98
[2018-02-03] MEDS: metroNIDAZOLE 500 MG INJ 100 ML IV SCH ×2 (10:37→14:51)
[2018-02-03] MEDS: SODIUM CHLORIDE 0.9% FLUSH 10 ML FLUSH IV FLUSH SCH ×2 (10:38→20:50)
[2018-02-03] MEDS: DOCUSATE SODIUM 50 MG/SENNA 8.6 MG TAB PO SCH (10:38)
[2018-02-03] MEDS: MULTIVITAMINS/MINERALS THERAPEUTIC TAB PO SCH (10:38)
[2018-02-03] MEDS: levETIRAcetam 500 MG TAB PO SCH ×2 (10:38→20:50)
[2018-02-03] MEDS: CARBIDOPA/LEVODOPA 25 MG/100 MG TAB PO SCH ×3 (10:38→18:01)
[2018-02-03] MEDS: PANTOPRAZOLE SODIUM 40 MG VIAL IV PUSH SCH (10:38)
[2018-02-03] MEDS: CHOLECALCIFEROL (VIT D3) 5000 UNIT CAP PO SCH (10:38)
[2018-02-03 12:00] VITALS: BP 165/74; PULSE 49; RESP 18; TEMP 96.3; O2SAT 97
--- NOTE | 2018-02-03 12:02 | HHI.PR ---
Subjective Remarks Patient seen and evaluated in follow-up for her intestinal bleeding with colitis. Now known to have C. difficile positive stools. Patient continues on metronidazole. Endoscopy today is pending. Patient says he feels weak after so much stool output following GI prep. No fevers otherwise overnight Objective Vitals Vital Signs Date Time Temp Pulse Resp B/P (MAP) Pulse Ox O2 Delivery O2 Flow Rate FiO2 02/03/18 08:00 96.4 48 18 150/70 (96) 98 02/03/18 00:16 97.8 55 20 162/77 (105) 94 02/02/18 20:00 98.4 53 18 166/74 (104) 97 02/02/18 16:00 97.9 52 18 136/66 (89) 95 I/O 02/02/18 02/02/18 02/02/18 02/03/18 02/03/18 02/03/18 07:00 15:00 23:00 07:00 15:00 23:00 Intake Total 500 ml 0 ml Output Total 240 ml Balance 500 ml 0 ml -240 ml Intake Oral 0 ml IV Total 500 ml Output Urine Total 240 ml # Voids 1 3 # Bowel Movements 0 5 5 Result Diagram: 02/02/18 0800 02/02/18 0800 Objective Remarks GENERAL: This is a well-nourished, well-developed patient, in no apparent distress. CARDIOVASCULAR: Regular rate and rhythm without murmurs, gallops, or rubs. RESPIRATORY: Clear to auscultation. Breath sounds equal bilaterally. No wheezes , rales, or rhonchi. GASTROINTESTINAL: Abdomen soft, non-tender, nondistended. Normal active bowel sounds MUSCULOSKELETAL: Extremities without clubbing, cyanosis, or edema. NEURO: Alert & Oriented x4 to person, place, time, situation. Moves all ext x4 A/P Problem List: (1) GI bleed ICD Code: K92.2 - Gastrointestinal hemorrhage, unspecified Status: Acute Plan: Stable, follow up hg For endoscopy today GI following (2) Colitis ICD Code: K52.9 - Noninfective gastroenteritis and colitis, unspecified Status: Acute Plan: Continue metronidazole C. difficile positive (3) Bradycardia ICD Code: R00.1 - Bradycardia, unspecified Plan: This is asymptomatic, will continue to follow as needed (4) Parkinsons ICD Code: G20 - Parkinson's disease Status: Acute Plan: Continue patient's home medications carbidopa levodopa Patient on seizure therapy as well Problem Qualifiers (1) GI bleed: Qualified Codes: K92.2 - Gastrointestinal hemorrhage, unspecified Rylee Myles MD February 03, 2018 12:02
[2018-02-03 12:10] VITALS: BP 152/73; PULSE 50; RESP 24; TEMP 97.5; O2SAT 98
--- NOTE | 2018-02-03 13:01 | GIPROC ---
[facility] [address] [place] [address], [id number] COLONOSCOPY PROCEDURE REPORT EXAM DATE: 02/03/2018 PATIENT NAME: Paulo Billy V MR #: [id number] BIRTHDATE: 1940 ENDOSCOPIST: Hamida Cunningham MD ORDER #: [id number] TOW BOAT CAPTAIN: Jeff Mcclelland STATUS: inpatient INDICATIONS: The patient is a 78 yr old male here for a colonoscopy due to rectal bleeding PROCEDURE PERFORMED: Colonoscopy with biopsy MEDICATIONS: None and Per Anesthesia. PREP QUALITY: good PREP TYPE:Other: ESTIMATED BLOOD LOSS: None CONSENT: The patient understands the risks and benefits of the procedure and understands that these risks include, but are not limited to: sedation, allergic reaction, infection, perforation and/or bleeding. Alternative means of evaluation and treatment include, among others: physical exam, x-rays, and/or surgical intervention. The patient elects to proceed with this endoscopic procedure. medical equipment was checked for proper function. Hand hygiene and appropriate measures for infection prevention was taken. After the risks, benefits and alternatives of the procedure were thoroughly explained, Informed consent was verified, confirmed and timeout was successfully executed by the treatment team. A digital exam revealed decreased sphincter tone and revealed external hemorrhoids The Pentax [id number] endoscope was introduced through the anus and advanced to the cecum, which was identified by both the appendix and ileocecal valve. The instrument was then slowly withdrawn as the colon was fully examined. COLON FINDINGS: Diverticulosis sigmoid,descending radiation proctitis-biopsy internal hemorrhoids grade 2 colitis in midtransverse-biopsy ulcer/colitis splenic flexure suggesting ischemic colitis-biopsy. Retroflexed views revealed internal hemorrhoids and Retroflexed views revealed medium internal hemorrhoids The scope was then completely withdrawn from the patient and the procedure terminated. PROCEDURE WITHDRAWAL TIME:6minutes ADVERSE EVENTS: There were no complications. IMPRESSIONS: 1. Diverticulosis sigmoid,descending radiation proctitis-biopsy internal hemorrhoids grade 2 colitis in midtransverse-biopsy ulcer/colitis splenic flexure suggesting ischemic colitis-biopsy 2. Retroflexed views revealed internal hemorrhoids 3. Retroflexed views revealed medium internal hemorrhoids 4. Revealed decreased sphincter tone 5. Revealed external hemorrhoids RECOMMENDATIONS: 1. Await biopsy results. Biopsy results will not be ready for 7-10 days. If you don't hear from us in two weeks, call our office for results. 2. Probiotics from any [employer] or health food store 3. Yearly rectal exams 4. Advance diet metronidazole RECALL: Return 3 months Colonoscopy Hamida Cunningham MD eSigned: Hamida Cunningham MD 02/03/2018 1:01 PM cc: PATIENT NAME: Paulo Billy V MR#: [id number]
[2018-02-03] MEDS ORDERED: CARB1TAB13 (14:57)
[2018-02-03 16:00] VITALS: BP 149/70; PULSE 43; RESP 18; TEMP 97.9; O2SAT 98
[2018-02-03] MEDS: LACTOBACILLUS ACIDOPHILUS 1 GM PACKET PO SCH (18:00)
[2018-02-03 20:00] VITALS: BP 131/64; PULSE 46; RESP 20; TEMP 96.5; O2SAT 97
[2018-02-04] VITALS: BP_SYST 101; BP_SYST 129; BP_DIAS 61; BP_DIAS 69; PULSE 47; PULSE 87; RESP 20; TEMP 97.6; TEMP 98; O2SAT 96
[2018-02-04] MEDS: metroNIDAZOLE 500 MG INJ 100 ML IV SCH ×2 (00:26→08:54)
[2018-02-04] MEDS: SODIUM CHLOR 0.9% 1000 ML INJ 1,000 ML IV SCH (00:33)
[2018-02-04] MEDS: LEVOTHYROXINE SODIUM 75 MCG TAB PO SCH (05:56)
[2018-02-04 06:43] LABS: BICARBONATE 25.2 MEQ/L (21.0-32.0); CALCIUM 8.4 MG/DL (8.5-10.1)
[2018-02-04 06:44] LABS: AUTOMATED NEUTROPHIL # 4.5 TH/MM3 (1.8-7.7); BASOPHIL % 0.4 % (0.0-2.0); EOSINOPHIL # 0.3 TH/MM3 (0-0.4); EOSINOPHIL % 5.2 % (0.0-4.0); HEMATOCRIT 38.2 % (39.0-51.0); HEMOGLOBIN 13.1 GM/DL (13.0-17.0); LYMPH % 13.1 % (9.0-44.0); LYMPHOCYTE # 0.8 TH/MM3 (1.0-4.8); MEAN CELL VOLUME 100.3 FL (80.0-100.0); MEAN CORPUSCULAR HEMOGLOBIN 34.5 PG (27.0-34.0); MEAN CORPUSCULAR HGB CONC 34.4 % (32.0-36.0); MONO % 10.4 % (0.0-8.0); MONOCYTE # 0.6 TH/MM3 (0-0.9); NEUT % 70.9 % (16.0-70.0); PLATELET COUNT 132 TH/MM3 (150-450); RED CELL DISTRIBUTION WIDTH 13.1 % (11.6-17.2); WHITE BLOOD COUNT 6.2 TH/MM3 (4.0-11.0)
[2018-02-04 06:46] LABS: CREATININE 0.76 MG/DL (0.60-1.30)
--- NOTE | 2018-02-04 07:33 | HHI.GIFU ---
GI Follow-up Note Consult Follow-up Subjective: Patient laying in bed comfortably, no new complaints .Discussed findings of egd/colonoscopy.No active bleeding, tolerating diet well. C diff positive on treatment Objective: PHYSICAL EXAMINATION: Vitals signs stable No fever Vital Signs Date Time Temp Pulse Resp B/P (MAP) Pulse Ox O2 Delivery O2 Flow Rate FiO2 02/04/18 12:00 98.0 60 16 150/70 (96) 94 HEENT: Pupils round and reactive to light; normocephalic; atraumatic; no jaundice. Throat is clear. NECK: Neck is supple, no JVD, no lymphadenopathy. CHEST: Chest is clear to auscultation and percussion. CARDIAC: Regular rate and rhythm with no murmur gallop or rubs. ABDOMEN: Soft, nondistended, nontender; no hepatosplenomegaly; bowel sounds are present in all four quadrants. EXTREMITIES: No clubbing, cyanosis, or edema. SKIN: Normal; no rash; no jaundice. ACCOUNT EXECUTIVE METALWORKING: No focal deficits; alert and oriented times three. Available Data (labs, X- Rays, Procedues) : Laboratory Tests Test 02/04/18 05:30 White Blood Count 6.2 TH/MM3 Red Blood Count 3.80 MIL/MM3 Hemoglobin 13.1 GM/DL Hematocrit 38.2 % Mean Corpuscular Volume 100.3 FL Mean Corpuscular Hemoglobin 34.5 PG Mean Corpuscular Hemoglobin Concent 34.4 % Red Cell Distribution Width 13.1 % Platelet Count 132 TH/MM3 Mean Platelet Volume 10.0 FL Neutrophils (%) (Auto) 70.9 % Lymphocytes (%) (Auto) 13.1 % Monocytes (%) (Auto) 10.4 % Eosinophils (%) (Auto) 5.2 % Basophils (%) (Auto) 0.4 % Neutrophils # (Auto) 4.5 TH/MM3 Lymphocytes # (Auto) 0.8 TH/MM3 Monocytes # (Auto) 0.6 TH/MM3 Eosinophils # (Auto) 0.3 TH/MM3 Basophils # (Auto) 0.0 TH/MM3 CBC Comment DIFF FINAL Differential Comment Blood Urea Nitrogen 7 MG/DL Creatinine 0.76 MG/DL Random Glucose 80 MG/DL Calcium Level 8.4 MG/DL Sodium Level 147 MEQ/L Potassium Level 3.3 MEQ/L Chloride Level 115 MEQ/L Carbon Dioxide Level 25.2 MEQ/L Anion Gap 7 MEQ/L Estimat Glomerular Filtration Rate 99 ML/MIN Magnesium Level 2.0 MG/DL ASSESSMENT/PLAN: c diff colitis on flagyl rectal bleeding secondary colitis most likely ischemic colitis Recommendations ok to dc home from gi point fu gi in 2 weeks colonoscopy in 3 month fu biopsy continue Flagyl It was a pleasure seeing Paulo Billy V. Thank you for this consult. Entered by: Hamida Olson MD February 04, 2018 07:33
[2018-02-04 08:00] VITALS: BP 166/75; PULSE 55; RESP 18; TEMP 98.3; O2SAT 96
[2018-02-04] MEDS ORDERED: POTASSIUM CHLORIDE 10 MEQ CONTROLLED RELEASE TAB PO ONE (08:00)
[2018-02-04] MEDS: levETIRAcetam 500 MG TAB PO SCH (08:55)
[2018-02-04] MEDS: CHOLECALCIFEROL (VIT D3) 5000 UNIT CAP PO SCH (08:55)
[2018-02-04] MEDS: PANTOPRAZOLE SODIUM 40 MG VIAL IV PUSH SCH (08:55)
[2018-02-04] MEDS: CARBIDOPA/LEVODOPA 25 MG/100 MG TAB PO SCH ×2 (08:55→13:51)
[2018-02-04] MEDS: MULTIVITAMINS/MINERALS THERAPEUTIC TAB PO SCH (08:55)
[2018-02-04] MEDS: SODIUM CHLORIDE 0.9% FLUSH 10 ML FLUSH IV FLUSH SCH (08:55)
[2018-02-04] MEDS: LACTOBACILLUS ACIDOPHILUS 1 GM PACKET PO SCH ×2 (09:00→13:51)
[2018-02-04] MEDS ORDERED: OMEP40CA2 PO (10:09)
[2018-02-04] MEDS ORDERED: METR1TAB76 PO (10:09)
[2018-02-04] MEDS ORDERED: LACTG PO (10:09)
--- NOTE | 2018-02-04 10:11 | HHI.DCPOC ---
Discharge Care Plan Diagnosis: (1) C. difficile colitis (2) Parkinsons (3) Colitis Goals to Promote Your Health * To prevent worsening of your condition and complications * To maintain your health at the optimal level Directions to Meet Your Goals Take your medications as prescribed Follow your dietary instruction Follow activity as directed Keep your appointments as scheduled Take your immunizations and boosters as scheduled If your symptoms worsen call your PCP, if no PCP go to Urgent Care Center or Emergency Room Smoking is Dangerous to Your Health. Avoid second hand smoke Call the 24-hour hour crisis hotline for domestic abuse at Rylee Myles MD February 04, 2018 10:10
--- NOTE | 2018-02-04 10:11 | HHI.FF ---
Face to Face Verification Diagnosis: (1) Parkinsons (2) Bradycardia Physical Therapy Order: Evaluate and Treat, Improve ambulation Occupational Therapy Order: Evaluate and Treat Home Health Nursing Order: Medical education Signs/symptoms of disease process I have seen patient Paulo Billy on 02/04/18. My clinical findings support the need for the requested home health care services because: Ltd mobility - disease progression Deconditioned w/ increased weakness Limited ability to care for self I certify that my clinical findings support that this patient is homebound because: Unsteady gait/balance Rylee Myles MD February 04, 2018 10:11
[2018-02-04 12:00] VITALS: BP 150/70; PULSE 60; RESP 16; TEMP 98; O2SAT 94
--- NOTE | 2018-02-04 12:08 | HHI.DS ---
Discharge Summary Admission Date February 02, 2018 at 17:14 Discharge Date: February 04, 2018 Admitting Diagnosis GI bleed. Colitis. (1) GI bleed ICD Code: K92.2 - Gastrointestinal hemorrhage, unspecified Status: Acute (2) Colitis ICD Code: K52.9 - Noninfective gastroenteritis and colitis, unspecified Status: Acute (3) Bradycardia ICD Code: R00.1 - Bradycardia, unspecified (4) Parkinsons ICD Code: G20 - Parkinson's disease Status: Acute Procedures Colonoscopy Brief History - From Admission This patient is a 78-year-old gentleman with a history of prostate cancer and 3 of rectal surgeries per the patient related to radiation. He presents with several days of constipation with some bloody stool. He has not had a lot of pain. He came to the emergency room for further evaluation. He has gross streaky blood with stool. He has internal and external hemorrhoids on exam as well as CT findings of colitis. Patient was recently in the hospital in December to have his right knee replaced. Patient denies diarrhea. He has not had a fever. Patient been admitted to the hospital for further evaluation and treatment of acute bleeding with colitis CBC/BMP: 02/04/18 0530 02/04/18 0530 Significant Findings Laboratory Tests Test 02/01/18 20:55 02/02/18 08:00 02/02/18 09:15 02/04/18 05:30 Red Blood Count 4.37 MIL/MM3 (4.50-5.90) 3.75 MIL/MM3 (4.50-5.90) 3.80 MIL/MM3 (4.50-5.90) Neutrophils (%) (Auto) 81.4 % (16.0-70.0) 70.3 % (16.0-70.0) 70.9 % (16.0-70.0) Lymphocytes (%) (Auto) 8.3 % (9.0-44.0) Lymphocytes # (Auto) 0.6 TH/MM3 (1.0-4.8) 0.8 TH/MM3 (1.0-4.8) 0.8 TH/MM3 (1.0-4.8) Prothrombin Time 12.2 SEC (9.8-11.6) Urine Leukocyte Esterase TRACE (NEG) Urine WBC 20-24 /hpf (0-5) Urine WBC Clumps FEW (NONE) Urine Bacteria OCC /hpf (NONE) Random Glucose 122 MG/DL (74-106) Aspartate Amino Transf (AST/SGOT) 14 U/L (15-37) 13 U/L (15-37) Alanine Aminotransferase (ALT/SGPT) 6 U/L (12-78) Chloride Level 109 MEQ/L (98-107) 113 MEQ/L (98-107) 115 MEQ/L (98-107) Estimat Glomerular Filtration Rate 79 ML/MIN (>89) 84 ML/MIN (>89) Hematocrit 37.5 % (39.0-51.0) 38.2 % (39.0-51.0) Mean Corpuscular Hemoglobin 35.3 PG (27.0-34.0) 34.5 PG (27.0-34.0) Platelet Count 147 TH/MM3 (150-450) 132 TH/MM3 (150-450) Monocytes (%) (Auto) 10.2 % (0.0-8.0) 10.4 % (0.0-8.0) Eosinophils (%) (Auto) 4.2 % (0.0-4.0) 5.2 % (0.0-4.0) Total Protein 6.0 GM/DL (6.4-8.2) Albumin 3.2 GM/DL (3.4-5.0) Potassium Level 3.4 MEQ/L (3.5-5.1) 3.3 MEQ/L (3.5-5.1) Stool C. difficile Toxin (PCR) POSITIVE (NEGATIVE) Stl C. difficile Toxin Epiderm 027 PRESUMPTIVE POSITIVE Mean Corpuscular Volume 100.3 FL (80.0-100.0) Calcium Level 8.4 MG/DL (8.5-10.1) Sodium Level 147 MEQ/L (136-145) PE at Discharge GENERAL: This is a well-nourished, well-developed patient, in no apparent distress. CARDIOVASCULAR: Regular rate and rhythm without murmurs, gallops, or rubs. RESPIRATORY: Clear to auscultation. Breath sounds equal bilaterally. No wheezes , rales, or rhonchi. GASTROINTESTINAL: Abdomen soft, non-tender, nondistended. Normal active bowel sounds MUSCULOSKELETAL: Extremities without clubbing, cyanosis, or edema. NEURO: Alert & Oriented x4 to person, place, time, situation. Moves all ext x4 Pt update on day of discharge Patient doing better. Diarrhea improved. Discharge plans discussed with patient he is agreeable Hospital Course Patient was seen and treated for intestinal bleeding. He did have colonoscopy which showed some ischemic findings. Patient also was found to have C. difficile. Recently had been in the hospital for right knee replacement. Overall patient improved. He was discharged home to continue with home health care. His discharge on oral antibiotics as well for treatment of C. difficile Pt Condition on Discharge: Good Discharge Disposition: Disch w/ Home Health Serv Discharge Time: <= 30 minutes Discharge Instructions DIET: Follow Instructions for: As Tolerated, No Restrictions Activities you can perform: Regular-No Restrictions Follow up Referrals: PCP Follow-up - 1 Week New Medications: Metronidazole (Metronidazole) 500 Mg Tab 500 MG PO TID for Infection, #42 TAB 0 Refills Omeprazole (Omeprazole) 40 Mg Cap 40 MG PO DAILY for gi, #30 CAP 0 Refills Lactobacillus Acidophilus (Floranex) 1 Gm Pkt 1 GM PO TID for Infection, #30 PACKET Continued Medications: Aspirin (Aspirin) 81 Mg Chew 81 MG CHEW DAILY for antiplatelet for 30 Days, #30 TAB 0 Refills resume when has finished the course of Lovenox. Carbidopa/Levodopa/Entacapone (Ebashoohu-Tzkrzbkj-Sjom 200 mg) 50 Mg-200 Mg-200 Mg Tablet 1 Cholecalciferol (Vitamin D3) 5,000 Unit Cap 5000 UNITS PO DAILY for Nutritional Supplement, #30 CAP 0 Refills Clonazepam (Clonazepam) 2 Mg Tab 4 MG PO HS for anxiety, #10 TAB 0 Refills Hydrocodone/Acetaminophen (Hydrocodone-Acetamin 10-325 mg) 10 Mg-325 Mg Tablet 1 TAB PO Q6H PRN for PAIN, #50 TAB Levetiracetam (Keppra) 500 Mg Tab 500 MG PO BID for Control Seizures, #60 TAB 0 Refills Levothyroxine (Levothyroxine) 75 Mcg Tab 75 MCG PO DAILY for Thyroid, #30 TAB 0 Refills Multiple Vitamins W/ Minerals (Thera M Plus) 1 Tab 1 TAB PO DAILY for vitamin for 30 Days, #30 TAB 0 Refills Rylee Myles MD February 04, 2018 12:08
== END 2018-02-04 14:20 | disposition home health service (06) | DRG 372 ==
LOC: PHED 19:32 → PHEDA 23:53 → INTOOBSV 23:53 → PH3B 02-02 01:50 → OBSVTOIN 02-02 17:14
PROVIDERS: ADMIT Hospitalist; ATTEND Hospitalist
PROC: 0DBL8ZX Excision of Transverse Colon, Via Natural or Artificial Opening Endoscopic, Diagnostic (ICD-10-PCS; 2018-02-03)
PROC: 0DBP8ZX Excision of Rectum, Via Natural or Artificial Opening Endoscopic, Diagnostic (ICD-10-PCS; principal; 2018-02-03 12:48)
DX: A04.72 Enterocolitis due to Clostridium difficile, not specified as recurrent (principal); K55.9 Vascular disorder of intestine, unspecified; G20 Parkinson's disease; K51.50 Left sided colitis without complications; K92.2 Gastrointestinal hemorrhage, unspecified; R00.1 Bradycardia, unspecified; G40.909 Epilepsy, unspecified, not intractable, without status epilepticus; K64.4 Residual hemorrhoidal skin tags; K59.00 Constipation, unspecified; I10 Essential (primary) hypertension; E78.5 Hyperlipidemia, unspecified; E03.9 Hypothyroidism, unspecified; G14 Postpolio syndrome; R63.4 Abnormal weight loss; K57.90 Diverticulosis of intestine, part unspecified, without perforation or abscess without bleeding; K64.1 Second degree hemorrhoids; K21.9 Gastro-esophageal reflux disease without esophagitis; Z96.651 Presence of right artificial knee joint; Z79.82 Long term (current) use of aspirin; Z87.442 Personal history of urinary calculi; Z85.46 Personal history of malignant neoplasm of prostate; Z92.3 Personal history of irradiation; F41.9 Anxiety disorder, unspecified
CPT/HCPCS: 74177; 80048; 80053; 81001; 83735; 85025; 85610; 85730; 86850; 86900; 86901; 87086; 87493; 87506; 88305; 96361; 96374; C9113; J2543; J7030; Q9967